=== PATIENT | female | born 1940 | race Caucasian/White ===

== ENCOUNTER 2020-03-21 09:13 | Inpatient (IN) ==
--- NOTE | 2020-02-22 15:01 | PAT Medication Instructions ---
Medication Instructions Date of Service February 22, 2020 Home Medications allopurinol 300 mg PO QAM amoxicillin 2,000 mg PO UD aspirin [Aspir-81] 81 mg PO HS cholecalciferol (vitamin D3) 25 mcg PO QAM clonazepam 1 mg PO HS erythromycin 1 applic OPHTHALMIC (EYE) HS gabapentin 300 mg PO TID ibuprofen [Advil] 600 mg PO BID latanoprost (PF) 1 drp OPHTHALMIC (EYE) HS levothyroxine 88 mcg PO QAM lisinopril 2.5 mg PO HS simvastatin 20 mg PO PM vit C,I-Yt-jinmy-lutein-zeaxan [PreserVision AREDS-2] 1 tab PO BID Continue as directed amoxicillin 2,000 mg PO UD (for dental procedures) ASK your surgeon for instructions ibuprofen [Advil] 600 mg PO BID STOP taking 2 weeks before surgery If surgery is within 2 weeks, stop taking as soon as possible. vit C,Y-Vi-skghq-lutein-zeaxan [PreserVision AREDS-2] 1 tab PO BID DO NOT take the morning of surgery cholecalciferol (vitamin D3) 25 mcg PO QAM Take morning of surgery With a small sip of water, OTHERWISE NOTHING TO EAT OR DRINK AFTER MIDNIGHT: allopurinol 300 mg PO QAM gabapentin 300 mg PO TID levothyroxine 88 mcg PO QAM Take evening before surgery aspirin [Aspir-81] 81 mg PO HS clonazepam 1 mg PO HS erythromycin 1 applic OPHTHALMIC (EYE) HS (bring with you to the hospital) gabapentin 300 mg PO TID latanoprost (PF) 1 drp OPHTHALMIC (EYE) HS (bring with you to the hospital) lisinopril 2.5 mg PO HS Other Notes If you have any questions please call us at [phone] or [phone] or [phone] or [phone]
--- NOTE | 2020-02-23 12:08 | Anesthesiology Consultation ---
Date of Service February 23, 2020 Assessment & Plan (1) Encounter for pre-operative examination: COVID Status: As of 02/22 assessment, patient denies travel to endemic area, known exposure/sick contacts, or symptoms of COVID19. Patient instructed that they and their household members must follow strict social distancing guidelines, wear a mask in public and avoid travel for 14 days prior to surgery. Preoperative COVID19 testing to be completed prior to surgery per surgeon's arrangements. Patient made aware to self-isolate as much as possible between COVID testing and surgery. Chart Review Chart Review: Acceptable Risk for Surgery and Patient seen in Pre Admission Testing Teaching & Discussion Instructed NPO after midnight before surgery, except medications with 15 cc of water. Medication instructions provided according to the PAT guidelines. History Surgery Operation Date: 03/21/20 09:00 Proposed Procedures p Right Total Knee Arthroplasty - Janak Nieto MD Height/Weight Height: 5 ft 4 in Weight: 80.8 kg Allergies Allergy/AdvReac Type Severity Reaction Status Date / Time diclofenac AdvReac Unknown RED SKIN, Verified 02/15/20 10:15 ITCHY indomethacin AdvReac Unknown NAUSEA Verified 02/15/20 10:15 VOMITING meloxicam AdvReac Unknown NAUSEA AND Verified 02/15/20 10:15 VOMITING Medications Home Medications Medication Instructions Recorded Confirmed Last Taken allopurinol 300 mg PO QAM 10/13/19 02/15/20 Unknown amoxicillin 2,000 mg PO UD 10/13/19 02/15/20 Unknown aspirin [Aspir-81] 81 mg PO HS 10/13/19 02/15/20 Unknown cholecalciferol (vitamin D3) 25 mcg PO QAM 10/13/19 02/15/20 Unknown [Vitamin D3] clonazepam 1 mg PO HS 10/13/19 02/15/20 Unknown erythromycin 1 applic OPHTHALMIC (EYE) HS 10/13/19 02/15/20 Unknown gabapentin 300 mg PO TID 10/13/19 02/15/20 Unknown ibuprofen [Advil] 600 mg PO BID 10/13/19 02/15/20 Unknown latanoprost (PF) 1 drp OPHTHALMIC (EYE) HS 10/13/19 02/15/20 Unknown levothyroxine 88 mcg PO QAM 10/13/19 02/15/20 Unknown lisinopril 2.5 mg PO HS 10/13/19 02/15/20 Unknown simvastatin 20 mg PO PM 10/13/19 02/15/20 Unknown vit C,B-Ce-zamoy-lutein-zeaxan 1 tab PO BID 10/13/19 02/15/20 Unknown [PreserVision AREDS-2] Past Medical History Medical History Arthritis Cancer RIGHT BREAST-6 YRS AGO Glaucoma Gout Hyperlipidemia Hypothyroidism MVP (mitral valve prolapse) Patient reports this was dx by her PCP but denies ever having an echo. She does premedicate with ABX prior to dental procedures. No murmur appreciated on exam at PAT. Restless leg syndrome Exercise / Class Metabolic Activity II 4-5 Yardwork/Stairs/Walk up hill (Mild INGRAM with 1 FOS but denies any chest pain) Past Family History Family History Sister Family history of diabetes mellitus Sister Family history of diabetes mellitus Past Surgical History Surgical History History of cataract surgery R/L History of colonoscopy X 4 History of hysterectomy TOTAL Hx of lumpectomy RIGHT BREAST S/P foot surgery R/L INCLUDING BUNIONS Past Anesthesia History No Hx of Anesthesia Complications and No Family Hx of Anesthesia Complications History of PONV No Hx of PONV and No Hx of Motion Sickness Social History Smoking Status: Never smoker Do You Dip or Chew Tobacco: No Hx Alcohol Use: Yes (very rarely) Alcohol type: beer and wine alcohol intake frequency: holidays/special occasions only Hx Substance Use: No substance use type: does not use Review of Systems Pt denies any recent chest pain, shortness of breath, palpitations, cough, fever, URI, or uncontrolled acid reflux. Physical Exam Vital Signs BP: 113/70 P: 63bpm SPO2: 97% RA T: 97.9 F R: 16 ENMT Mouth: + dentures (partial upper); no chipped teeth and no loose teeth Thyromental Distance: > or= 3.5 Finger Breadths (3.5) Mallampati Class: II Neck normal visual inspection and + limited neck extension (mildly) Respiratory normal respiratory effort Auscultation: lungs clear to auscultation bilaterally Cardiovascular Rate/Rhythm: regular rate and regular rhythm Heart Sounds: no murmur Extremities: no edema Testing Laboratory Results 02/23/20 11:59 02/23/20 11:59 PT 10.4 Seconds (9.0-12.0) 02/23/20 11:59 INR 1.0 (0.9-1.1) 02/23/20 11:59 APTT 25.5 Seconds (21.0-31.0) 02/23/20 11:59 Hemoglobin A1c 5.7 % (4.5-5.6) H 02/23/20 11:59 Urine Color Yellow 02/23/20 Unknown Urine Appearance Turbid (Clear) A 02/23/20 Unknown Urine pH 5.0 (4.5-7.5) 02/23/20 Unknown Ur Specific [place] 1.019 (1.000-1.030) 02/23/20 Unknown Urine Protein Negative (Negative) 02/23/20 Unknown Urine Glucose (UA) Negative (Negative) 02/23/20 Unknown Urine Ketones Negative (Negative) 02/23/20 Unknown Urine Nitrite Positive (Negative) A 02/23/20 Unknown Ur Leukocyte Esterase 3+ (Negative) H 02/23/20 Unknown Urine WBC (Auto) >30 /hpf (0-5) H 02/23/20 Unknown Urine RBC (Auto) 5-10 /hpf (0-4) H 02/23/20 Unknown U Hyaline Cast (Auto) 1-5 /lpf (0-5) 02/23/20 Unknown U Epithel Cells (Auto) >30 /lpf (0-5) H 02/23/20 Unknown Urine Bacteria (Auto) 4+ (Negative) H 02/23/20 Unknown Blood Type AB Positive 02/23/20 11:59 Antibody Screen NEGATIVE 02/23/20 11:59 02/23/20 Unknown Urine Culture - Final Urine,Clean Catch Klebsiella pneumoniae *Surgeon's office flagged re: + UA Electrocardiogram Date: 02/23/20 Findings: + NSR @ (64bpm) Chest X-Ray Date: 02/23/20 Findings: + NAD
[2020-02-23 12:51] LABS: Basophils # (auto) 0.06 K/uL (0-0.2); Basophils % (auto) 0.6 %; Eosinophils # (auto) 0.46 K/uL (0-0.5); Eosinophils % (auto) 4.9 %; Hematocrit (blood only) 38.3 % (37-47); Hemoglobin 12.7 g/dL (12.0-16.0); Immature Granulocytes # (auto) 0.03 K/uL (0.00-0.02); Immature Granulocytes % (auto) 0.3 %; Lymphocytes # (auto) 3.16 K/uL (1.2-3.4); Lymphocytes % (auto) 33.9 %; Mean Corpuscular Hgb Conc 33.2 g/dL (32-36); Mean Corpuscular Volume 93.4 fL (80-100); Monocytes # (auto) 0.77 K/uL (0.11-0.59); Monocytes % (auto) 8.3 %; Neutrophils # (auto) 4.85 K/uL (1.4-6.5); Platelet Count 244 K/uL (130-400); RDW Coefficient of Variation 13.2 % (11.5-14.5); RDW Standard Deviation 45.2 fL (36.4-46.3); White Blood Count 9.33 K/uL (4.8-10.8)
--- NOTE | 2020-02-23 13:00 | XRay Report ---
XR chest Pre-admission PA/Lat HISTORY: Preop. COMPARISON: None. FINDINGS: The lungs are clear. Cardiac silhouette is normal in size. No pleural effusions. No pneumot horax. IMPRESSION: No acute process. ACT 112: Negative or not required by law. Electronically signed by: Don Schulte M.D. 02/23/2020 12:58 PM
[2020-02-23 13:04] LABS: Estimated Average Glucose 117 mg/dl; Hemoglobin A1C 5.7 % (4.5-5.6)
[2020-02-23 13:07] LABS: Appearance Urine Turbid (Clear); Bacteria Urine Automated 4+ (Negative); Bilirubin Urine Negative (Negative); Blood Urine Trace (Negative); Color Urine Yellow; Epithelial Cell Urine Auto >30 /lpf (0-5); Glucose Urine UA Negative (Negative); Ketones Urine Negative (Negative); Leukocyte Esterase Urine 3+ (Negative); Nitrite Urine Positive (Negative); Protein Urine Negative (Negative); Specific Gravity Urine 1.019 (1.000-1.030); Urobilinogen Urine Negative (Negative); WBC Urine Automated >30 /hpf (0-5)
[2020-02-23 13:14] LABS: Partial Thromboplastin Ratio 0.9; Partial Thromboplastin Time 25.5 Seconds (21.0-31.0); Prothrombin Time 10.4 Seconds (9.0-12.0)
[2020-02-23 13:27] LABS: Albumin Level 3.8 gm/dl (3.4-5.0); BUN Creatinine Ratio 16.8 (10-20); Calcium 9.5 mg/dl (8.5-10.1); Creatinine Clr Calc Pharmacy 40.4 ml/min; Est GFR (African American) 51.9; Est GFR (Non-African American) 44.7; Potassium 4.8 mmol/L (3.5-5.1)
--- NOTE | 2020-02-23 16:09 | Electrocardiogram Report ---
Test Reason : Blood Pressure : / mmHG Vent. Rate : 064 BPM Atrial Rate : 064 BPM P-R Int : 180 ms QRS Dur : 072 ms QT Int : 380 ms P-R-T Axes : 062 033 025 degrees QTc Int : 392 ms Normal sinus rhythm Normal ECG No previous ECGs available Confirmed by Cabrera Christian ([id number]) on 02/23/2020 4:09:03 PM Referred By: Janak Nieto Confirmed By:Cabrera Christian
--- NOTE | 2020-03-20 13:02 | History & Physical Report ---
Date of Service March 20, 2020 Assessment & Plan (1) Primary osteoarthritis of right knee: Admission and Anticipated Discharge Date Admission Date: Treatment options discussed. She has failed conservative measures above. Risks, benefits and alternatives to surgery including but not limited to infection, DVT, pain, stiffness, need for revision surgery, damage to blood vessels, damage to nerves, PE, , were discussed with the patient and they wish to proceed. Plan will be for right total knee arthroplasty at [facility] on 03/21/20. Will plan on aspirin 81mg bid x 1 mo post op for DVT prophylaxis, as well as will plan on home health PT post discharge. All questions answered. She will follow up post op. Of note, patient's UA and culture positive for UTI. She was treated preoperatively for this. History of Present Illness Chief Complaint: Right knee pain Primary Care Provider: Woodrow Adame MD 79 year old female with PMHx significant for hypothyroidism, HTN, and gout who presents with chronic right knee pain. She has pain affecting her daily acitivities. She has failed conservative measures including cortisone injections, viscoelastic injections, Advil and Aleve. She would like to proceed with right knee replacement. Patient denies headaches, sweats, fevers, chills, double vision, blurred vision, cough, sore throat, dysphagia, chest pain, sob, wheezing, n/v/d/c, numbness, tingling, fatigue, urinary symptoms, mood disorders. ROS positive for right knee pain and stiffness. Allergies Allergy/AdvReac Type Severity Reaction Status Date / Time diclofenac AdvReac Unknown RED SKIN, Verified 02/15/20 10:15 ITCHY indomethacin AdvReac Unknown NAUSEA Verified 02/15/20 10:15 VOMITING meloxicam AdvReac Unknown NAUSEA AND Verified 02/15/20 10:15 VOMITING Home Medications Home Medications Medication Instructions Recorded Confirmed Type allopurinol 300 mg PO QAM 10/13/19 02/15/20 History amoxicillin 2,000 mg PO UD 10/13/19 02/15/20 History aspirin [Aspir-81] 81 mg PO HS 10/13/19 02/15/20 History cholecalciferol (vitamin D3) 25 mcg PO QAM 10/13/19 02/15/20 History [Vitamin D3] clonazepam 1 mg PO HS 10/13/19 02/15/20 History erythromycin 1 applic OPHTHALMIC (EYE) 10/13/19 02/15/20 History gabapentin 300 mg PO TID 10/13/19 02/15/20 History ibuprofen [Advil] 600 mg PO BID 10/13/19 02/15/20 History latanoprost (PF) 1 drp OPHTHALMIC (EYE) HS 10/13/19 02/15/20 History levothyroxine 88 mcg PO QAM 10/13/19 02/15/20 History lisinopril 2.5 mg PO HS 10/13/19 02/15/20 History simvastatin 20 mg PO PM 10/13/19 02/15/20 History vit C,Q-Sg-yvvvu-lutein-zeaxan 1 tab PO BID 10/13/19 02/15/20 History [PreserVision AREDS-2] Past Med/Surg History Medical History Arthritis Cancer RIGHT BREAST-6 YRS AGO Glaucoma Gout Hyperlipidemia Hypothyroidism MVP (mitral valve prolapse) Patient reports this was dx by her PCP but denies ever having an echo. She does premedicate with ABX prior to dental procedures. No murmur appreciated on exam at PAT. Restless leg syndrome Surgical History History of cataract surgery R/L History of colonoscopy X 4 History of hysterectomy TOTAL Hx of lumpectomy RIGHT BREAST S/P foot surgery R/L INCLUDING BUNIONS Family History Sister Family history of diabetes mellitus Sister Family history of diabetes mellitus Social History Smoking Status: Never smoker Second Hand Exposure: Yes (FATHER SMOKED); Do You Dip or Chew Tobacco: No; Hx Alcohol Use: Yes (very rarely) Alcohol type: beer and wine Hx Substance Use: No Preferred Language: Wolof Communication Ability: Effective Family Assistant Required: No Beliefs That Will Affect Care: None Current Living Situation: Spouse Other Information That Helps Us Care for You: No Feels Safe at Home: Yes Safety Concerns: Feels Safe At This Time Review of Systems All systems reviewed & are unremarkable except as noted in HPI & below Physical Exam Constitutional: well developed and well nourished; no acute distress Eyes: PERRL, conjunctivae normal, anicteric sclerae ENMT: external ear and nose normal, oropharynx normal Neck: trachea midline, no thyromegaly Respiratory: normal respiratory effort, lungs clear to auscultation Cardiovascular: RRR, no murmur, no edema Musculoskeletal: Right knee: ROM 0-130, mild effusion. Tenderness medial joint line. Stable to valgus and varus stress, positive Francesco's Skin: no rashes, warm and dry Neurologic: patellar DTR's 2+ bilat, sensation intact Psychiatric: A+Ox3, euthymic affect Results & Data ([facility]) Laboratory Results Lab Results 02/23/20 02/23/20 02/23/20 Range/Units 11:59 11:59 11:59 WBC 9.33 (4.8-10.8) K/uL RBC 4.10 L (4.2-5.4) M/uL Hgb 12.7 (12.0-16.0) g/dL Hct 38.3 (37-47) % MCV 93.4 (80-100) fL MCH 31.0 (25-34) pg MCHC 33.2 (32-36) g/dL RDW Std Deviation 45.2 (36.4-46.3) fL RDW Coeff of Nicci 13.2 (11.5-14.5) % Plt Count 244 (130-400) K/uL MPV 11.0 H (7.4-10.4) fL Immature Gran % (Auto) 0.3 % Neut % (Auto) 52.0 % Lymph % (Auto) 33.9 % [place] % (Auto) 8.3 % Eos % (Auto) 4.9 % Baso % (Auto) 0.6 % Neut # (Auto) 4.85 (1.4-6.5) K/uL Lymph # (Auto) 3.16 (1.2-3.4) K/uL [place]verse # (Auto) 0.77 H (0.11-0.59) K/uL Eos # (Auto) 0.46 (0-0.5) K/uL Baso # (Auto) 0.06 (0-0.2) K/uL Immature Gran # (Auto) 0.03 H (0.00-0.02) K/uL PT 10.4 (9.0-12.0) Seconds INR 1.0 (0.9-1.1) APTT 25.5 (21.0-31.0) Seconds PTT Ratio 0.9 Sodium 143 (136-145) mmol/L Potassium 4.8 (3.5-5.1) mmol/L Chloride 112 H (98-107) mmol/L Carbon Dioxide 26 (21-32) mmol/L Anion Gap 5.0 (3-11) BUN 19 H (7-18) mg/dl Creatinine 1.16 (0.6-1.2) mg/dl Est Cr Clr Drug Dosing 40.4 ml/min Est GFR ( Amer) 51.9 Est GFR (Non-Af Amer) 44.7 BUN/Creatinine Ratio 16.8 (10-20) Glucose 84 (70-99) mg/dl Estimat Average Glucose mg/dl Hemoglobin A1c (4.5-5.6) % Calcium 9.5 (8.5-10.1) mg/dl Albumin 3.8 (3.4-5.0) gm/dl Urine Color Urine Appearance (Clear) Urine pH (4.5-7.5) Ur Specific [place] (1.000-1.030) Urine Protein (Negative) Urine Glucose (UA) (Negative) Urine Ketones (Negative) Urine Blood (Negative) Urine Nitrite (Negative) Urine Bilirubin (Negative) Urine Urobilinogen (Negative) Ur Leukocyte Esterase (Negative) Urine WBC (Auto) (0-5) /hpf Urine RBC (Auto) (0-4) /hpf U Hyaline Cast (Auto) (0-5) /lpf U Epithel Cells (Auto) (0-5) /lpf Urine Bacteria (Auto) (Negative) Blood Type Antibody Screen 02/23/20 02/23/20 02/23/20 Range/Units 11:59 11:59 Unknown WBC (4.8-10.8) K/uL RBC (4.2-5.4) M/uL Hgb (12.0-16.0) g/dL Hct (37-47) % MCV (80-100) fL MCH (25-34) pg MCHC (32-36) g/dL RDW Std Deviation (36.4-46.3) fL RDW Coeff of Nicci (11.5-14.5) % Plt Count (130-400) K/uL MPV (7.4-10.4) fL Immature Gran % (Auto) % Neut % (Auto) % Lymph % (Auto) % [place]verse % (Auto) % Eos % (Auto) % Baso % (Auto) % Neut # (Auto) (1.4-6.5) K/uL Lymph # (Auto) (1.2-3.4) K/uL [place] # (Auto) (0.11-0.59) K/uL Eos # (Auto) (0-0.5) K/uL Baso # (Auto) (0-0.2) K/uL Immature Gran # (Auto) (0.00-0.02) K/uL PT (9.0-12.0) Seconds INR (0.9-1.1) APTT (21.0-31.0) Seconds PTT Ratio Sodium (136-145) mmol/L Potassium (3.5-5.1) mmol/L Chloride (98-107) mmol/L Carbon Dioxide (21-32) mmol/L Anion Gap (3-11) BUN (7-18) mg/dl Creatinine (0.6-1.2) mg/dl Est Cr Clr Drug Dosing ml/min Est GFR ( Amer) Est GFR (Non-Af Amer) BUN/Creatinine Ratio (10-20) Glucose (70-99) mg/dl Estimat Average Glucose 117 mg/dl Hemoglobin A1c 5.7 H (4.5-5.6) % Calcium (8.5-10.1) mg/dl Albumin (3.4-5.0) gm/dl Urine Color Yellow Urine Appearance Turbid A (Clear) Urine pH 5.0 (4.5-7.5) Ur Specific [place] 1.019 (1.000-1.030) Urine Protein Negative (Negative) Urine Glucose (UA) Negative (Negative) Urine Ketones Negative (Negative) Urine Blood Trace H (Negative) Urine Nitrite Positive A (Negative) Urine Bilirubin Negative (Negative) Urine Urobilinogen Negative (Negative) Ur Leukocyte Esterase 3+ H (Negative) Urine WBC (Auto) >30 H (0-5) /hpf Urine RBC (Auto) 5-10 H (0-4) /hpf U Hyaline Cast (Auto) 1-5 (0-5) /lpf U Epithel Cells (Auto) >30 H (0-5) /lpf Urine Bacteria (Auto) 4+ H (Negative) Blood Type AB Positive Antibody Screen NEGATIVE Diagnostic Findings Right knee radiographs: Significant joint space narrowing medial compartment, near bone on bone. Osteophyte formation medial femoral condyle and medial tibial plateau.
[~2020-03-21 09:13] MED LIST: ACETAMINOPHEN 500 MG TAB PO SCH; BUPIVACAINE 0.5 % 5 MG/1 ML PF 10ML VIAL ONE; BUPIVACAINE/EPINEPHRINE 0.25% 1:200,000 30 ML VIAL ONE; CEFAZOLIN 2000MG 2,000 MG/15 ML SYR IV SCH; CeleBREX 200 MG CAP PO SCH; DEXAMETHASONE SOD INJ 4 MG/ML VIAL ONE; FAMOTIDINE 20 MG TAB PO SCH; GABAPENTIN 300 MG CAP PO SCH; LIDOCAINE HCL 2% 2 ML VIAL/AMP(20MG/ML) INFIL ONE; LR 500ML BOLUS, THEN 15ML/HR IV SCH; METOCLOPRAMIDE HCL 10 MG TABLET PO SCH; MIDAZOLAM HCL 1 MG/ML 2ML VIAL ONE; ONDANSETRON INJ 2 MG/ML 2 ML VIAL ONE; OXYCODONE HCL 10 MG TABCR (OXYCONTIN) PO SCH; PROPOFOL IV EMULSION 10 MG/ML 20 ML VIAL IV ONE; ROPIVACAINE 0.5% HCL/PF 150 MG, BUPIVACAINE 0.5% MPF 30 ML, EPINEPHrine 30MG/30ML (OR U... INSTIL SCH; TRANEXAMIC ACID 1,000 MG **IV Intra-op IV SCH; TRANEXAMIC ACID 1,000 MG **IV Pre-op IV SCH; fentaNYL citrate 100 MCG/2 ML VIAL ONE
--- NOTE | 2020-03-21 09:46 | History & Physical Bridge Note ---
Date of Service March 21, 2020 History & Physical Bridge Note I have examined the patient, reviewed the History & Physical and in the interval since the performance of the History & Physical I have noted the following changes of clinical significance: no changes noted
[2020-03-21] MEDS ORDERED: dexAMETHasone 4 MG TAB PO ONE (09:50)
[2020-03-21] MEDS ORDERED: BACITRACIN INJ 50,000 UNIT VIAL ONE (10:51)
[2020-03-21] MEDS ORDERED: MIDAZOLAM HCL 1 MG/ML 2ML VIAL ONE (11:06)
[2020-03-21] MEDS ORDERED: PHENYLEPHRINE 100MCG/ML 5ML SYR ONE (11:48)
[2020-03-21] MEDS ORDERED: fentaNYL citrate 100 MCG/2 ML VIAL IV PRN (12:27)
[2020-03-21] MEDS ORDERED: ePHEDrine sulfate 50 MG/ML AMP IV PRN (12:27)
[2020-03-21] MEDS ORDERED: ATROPINE SULFATE 0.1 MG/ML 10ML SYR IV PRN (12:27)
[2020-03-21] MEDS ORDERED: ONDANSETRON INJ 2 MG/ML 2 ML VIAL IV PRN ×2 (12:27→14:44)
--- NOTE | 2020-03-21 12:59 | Operative Report ---
Post Operative Report Pre & Post Diagnosis Operation Date: 03/21/20 11:30 Pre-Op Diagnosis: Unilateral Primary Osteoarthritis, Right Knee Post-Op Diagnosis: Unilateral Primary Osteoarthritis, Right Knee I identified the patient and participated in the time-out.: Yes Procedure Operation Date: 03/21/20 11:30 Actual Procedures p Right Total Knee Arthroplasty(Right) - Janak Nieto MD Surgeon Janak Nieto MD Superannuation Funds Manager Ham Rubi PA-C Estimated Blood Loss 20 Findings Consistent with Post-Op Diagnosis Specimens Bone and tissue Drains None Anesthesia Type MAC Spinal Regional Complications none Disposition Accompanied Patient To Recovery: No Disposition: Recovery Room Indications The patient is a 79-year-old female with longstanding arthritic change of the right knee. She is failed conservative measures including injection, anti- inflammatories, rehab. She wishes to proceed with a right total knee arthroplasty Description of Procedure Risks benefits and alternatives of surgery including but not limited to infection, DVT, pain, stiffness, need for surgery, damage to blood vessels, damage to nerves or risks of anesthesia were discussed with the patient and they wished to proceed. The patient was identified and the laterality was confirmed and marked. They received a preoperative antibiotic as well as a spinal anesthetic and an abductor canal block. A well-padded tourniquet was applied and then the limb was prepped and draped in standard manner with ChloraPrep. The limb was exsanguinated and the tourniquet was inflated. I made a standard anterior incision. I sharply incised the skin then utilized Bovie electrocautery to achieve hemostasis. I made a medial parapatellar ar throtomy and mobilized the patella laterally. I then excised the anterior horns of the medial and lateral meniscus as well as the infrapatellar fat pad. I elevated a portion of the MCL off of the tibia. I then pinned into place a patient-matched distal femoral cutting guide and made my distal femoral resection. I then pinned into place the 5 in 1 femoral cutting guide. I made my anterior, posterior and chamfer cuts. I then excised the cruciates and the remaining portions of the menisci. I then pinned into place a patient- matched tibial cutting guide and made my tibial resection. I then pinned into place the tibial plate a utilizing alignment isai to confirm rotation. I then cut for the post. Utilizing a lamina public services librarian and I then removed posterior osteophytes off the femur. I then placed a trial femur into position and cut for the trochlear component. I then sequentially trialed to size the polyethylene until there was good soft tissue balancing and range of motion. I then prepared the patella with a freehand cut utilizing sagittal saw. I sized and drilled for the patella. There was good tracking to the patella no lateral release was needed. All the trial components were removed. The deep tissues were anesthetized with an ortho mix solution. Then with Simplex HV with gentamicin cement, I cemented my definitive components. Definitive components, You and Nephew Kathyney 2: Femur 3 Tibia 3 Poly 9 Patella 32 oval A betadine soak was performed. The arthrotomy was closed with interrupted #1 Vicryl suture subcutaneous tissue was closed with interrupted 2-0 Vicryl suture. The skin was closed with with pato. An Acticoat and Courtney dressing were placed. Sterile dressings were applied. All needle and sponge counts were correct at the end of the procedure patient was transferred to the PACU in stable condition without apparent complication. The PA-C was necessary for assistance with procedure for assistance in positioning, prepping, draping, retraction and closure. I attest to the content of the Intraoperative Record and any orders documented therein. Any exceptions are noted below.
[2020-03-21] MEDS ORDERED: PROPOFOL IV EMULSION 10 MG/ML 20 ML VIAL IV ONE (13:07)
--- NOTE | 2020-03-21 14:26 | XRay Report ---
XR knee RT 1 or 2V routine CLINICAL HISTORY: Surgical Post Op COMPARISON: None. DISCUSSION: There are postsurgical changes of a total right knee arthroplasty and patellar resurfacin g. Overlying skin pato are visualized. There is gas present within the soft tissues consistent wit h recent surgery. The femoral and tibial components appear well seated. IMPRESSION: Postsurgical changes of a total right knee arthroplasty. ACT 112: Negative or not required by law. Electronically signed by: Scotty Marquez M.D. 03/21/2020 2:25 PM
--- NOTE | 2020-03-21 14:31 | Anesthesiology Progress Note ---
Date of Service March 21, 2020 Anesthesia Post Procedure Vital Signs Vital Signs: Temp Pulse Pulse Resp BP Pulse Ox 03/21/20 14:15 87 16 113/56 L 100 03/21/20 14:00 36.5 C 91 H 16 109/55 L 100 03/21/20 13:50 93 H 16 116/49 L 99 03/21/20 13:42 36.6 C 98 H 16 118/50 L 97 03/21/20 10:36 36.6 C 81 20 142/69 H 96 03/21/20 09:59 36.8 C 90 18 153/69 H 98 Pain Intensity Right Knee: Pain Intensity: 3 Transfer of Care Handoff Completed per policy Notes Mental Status: alert / awake / arousable Patient Amnestic to Procedure: Yes Nausea / Vomiting: adequately controlled Pain: adequately controlled Airway Patency, RR, SpO2: stable & adequate BP & HR: stable & adequate Hydration State: stable & adequate Neuraxial Anesthesia: was administered and sensory block is resolving Anesthetic Complications: no major complications apparent
[2020-03-21] MEDS ORDERED: NALOXONE HCL 0.4 MG/1 ML VIAL/CARP IV PRN (14:44)
[2020-03-21] MEDS ORDERED: bisacodyL 10 MG SUPP PR PRN (14:44)
[2020-03-21] MEDS ORDERED: HYDROmorphone INJ 0.5 MG/0.5 ML SYR IV PRN (14:44)
[2020-03-21] MEDS ORDERED: OXYCODONE HCL IR 5 MG TAB (IMMEDIATE RELEASE) PO PRN (14:44)
[2020-03-21] MEDS ORDERED: METOCLOPRAMIDE HCL INJ 5 MG/ML 2 ML VIAL IV PRN (14:44)
[2020-03-21] MEDS ORDERED: SODIUM CHLORIDE 0.9% 1000ML 1,000 ML IV SCH (14:44)
[2020-03-21] MEDS ORDERED: MAGNESIUM HYDROXIDE SUSP 30 ML UDC PO PRN (14:44)
[2020-03-21] MEDS ORDERED: NON-FORMULARY MEDICATION (Amoxicillin 2,000 MG) PO SCH (14:44)
[2020-03-21] MEDS: ACETAMINOPHEN 500 MG TAB PO SCH ×2 (17:50→21:51)
[2020-03-21] MEDS: GABAPENTIN 300 MG CAP PO SCH ×2 (17:51→21:49)
[2020-03-21] MEDS: ERYTHROMYCIN OP OINT 5 MG/GM 3.5 GM TUBE OP SCH (18:43)
[2020-03-21] MEDS: SENNA 8.6 MG TAB PO SCH (18:45)
[2020-03-21] MEDS: CEFAZOLIN 2000MG 2,000 MG/15 ML SYR IV SCH ×2 (18:50→23:38)
[2020-03-21] MEDS ORDERED: LATANOPROST 0.005% OP SOLN 2.5 ML BTL OPL SCH (21:00)
[2020-03-21] MEDS: DOCUSATE SODIUM 100 MG CAP PO SCH (21:48)
[2020-03-21] MEDS: CEROVITE ADV FORMULA TAB PO SCH (21:50)
[2020-03-21] MEDS: IBUPROFEN 600 MG TAB PO SCH (21:50)
[2020-03-21] MEDS: SIMVASTATIN 20 MG TAB PO SCH (21:51)
[2020-03-21] MEDS: ASPIRIN 81 MG ECTAB PO SCH (21:51)
[2020-03-21] MEDS: clonazePAM 1 MG TAB PO SCH (21:56)
[2020-03-22] MEDS: ACETAMINOPHEN 500 MG TAB PO SCH ×3 (05:01→21:50)
[2020-03-22] MEDS: LEVOTHYROXINE SODIUM 88 MCG TABLET PO SCH (05:01)
[2020-03-22 06:02] LABS: Hematocrit (blood only) 35.9 % (37-47); Hemoglobin 11.7 g/dL (12.0-16.0); Mean Corpuscular Hemoglobin 29.8 pg (25-34); Mean Corpuscular Hgb Conc 32.6 g/dL (32-36); Mean Corpuscular Volume 91.6 fL (80-100); Platelet Count 230 K/uL (130-400); RDW Coefficient of Variation 13.1 % (11.5-14.5); RDW Standard Deviation 43.4 fL (36.4-46.3); Red Blood Count 3.92 M/uL (4.2-5.4); White Blood Count 21.56 K/uL (4.8-10.8)
[2020-03-22 06:31] LABS: BUN Creatinine Ratio 15.8 (10-20); Calcium 8.6 mg/dl (8.5-10.1); Est GFR (African American) 47.4; Est GFR (Non-African American) 40.9; Potassium 4.3 mmol/L (3.5-5.1)
--- NOTE | 2020-03-22 07:29 | Orthopedic Progress Note ---
Date of Service March 22, 2020 Assessment & Plan (1) Primary osteoarthritis of right knee: POD#1 Right TKA -PT/OT -Pain management -DVT prophylaxis-DEL33ty BID, SCDs, TEDs -AM labs-hemoglobin at 11.7 down from 12.7. Creatinine at 1.25 this morning, mildly elevated from 1.16 preop, encourage PO intake -D/C planning-home with HHPT likely tomrrow Admission and Anticipated Discharge Date Admission Date: March 21, 2020 Subjective Patient is doing well this morning, really not having a lot of pain. She denies chest pain, sob, dizziness, nausea. Review of Systems Review of Systems: All systems reviewed & are unremarkable except as noted in HPI & below Physical Exam Physical Exam: Right knee dressing is c/d/i, toes are mobile with good dorsiflexion. No calf tenderness. Distally n/v status and sensation intact. Constitutional: well developed and well nourished; no acute distress Results & Data ([facility]) Vital Signs (Past 12 Hours) Vital Signs Temp Pulse Resp BP BP Pulse Ox 03/22/20 07:06 36.5 C 62 16 100/62 94 03/22/20 03:48 36.5 C 71 14 107/63 96 03/21/20 23:06 36.7 C 86 14 104/65 92 03/21/20 19:50 37.0 C 90 20 111/66 94
--- NOTE | 2020-03-22 08:20 | Anesthesiology Progress Note ---
Date of Service March 22, 2020 Anesthesia Post Procedure Vital Signs Vital Signs: Temp Pulse Pulse Resp BP BP Pulse Ox 03/22/20 07:06 36.5 C 62 16 100/62 94 03/22/20 03:48 36.5 C 71 14 107/63 96 03/21/20 23:06 36.7 C 86 14 104/65 92 03/21/20 19:50 37.0 C 90 20 111/66 94 03/21/20 17:45 36.4 C L 90 20 111/66 97 03/21/20 16:30 36.4 C L 86 20 118/72 96 03/21/20 15:33 36.4 C L 85 18 128/58 L 100 03/21/20 15:08 36.5 C 90 20 131/72 95 03/21/20 14:15 87 16 113/56 L 100 03/21/20 14:00 36.5 C 91 H 16 109/55 L 100 03/21/20 13:50 93 H 16 116/49 L 99 03/21/20 13:42 36.6 C 98 H 16 118/50 L 97 03/21/20 10:36 36.6 C 81 20 142/69 H 96 03/21/20 09:59 36.8 C 90 18 153/69 H 98 Pain Intensity Right Knee: Pain Intensity: 4 Notes Mental Status: alert / awake / arousable Nausea / Vomiting: adequately controlled Pain: adequately controlled Airway Patency, RR, SpO2: stable & adequate BP & HR: stable & adequate Hydration State: stable & adequate Neuraxial Anesthesia: was administered and sensory block resolved Anesthetic Complications: no major complications apparent and Pt Satisfied with anesthetic care
[2020-03-22] MEDS: IBUPROFEN 600 MG TAB PO SCH ×2 (08:29→21:49)
[2020-03-22] MEDS: DOCUSATE SODIUM 100 MG CAP PO SCH ×2 (08:29→21:50)
[2020-03-22] MEDS: CHOLECALCIFEROL 1,000 UNITS 25 MCG TAB PO SCH (08:30)
[2020-03-22] MEDS: ASPIRIN 81 MG ECTAB PO SCH ×2 (08:30→21:52)
[2020-03-22] MEDS: CEROVITE ADV FORMULA TAB PO SCH ×2 (08:30→21:52)
[2020-03-22] MEDS: GABAPENTIN 300 MG CAP PO SCH ×3 (08:30→21:48)
[2020-03-22] MEDS: allopurinoL 300 MG TAB PO SCH (08:30)
[2020-03-22] MEDS ORDERED: MULTIVITAMIN TAB PO SCH (09:00)
[2020-03-22] MEDS ORDERED: LATANOPROST 0.005% OP SOLN 2.5 ML BTL OPL SCH (21:00)
[2020-03-22] MEDS: SENNA 8.6 MG TAB PO SCH (21:48)
[2020-03-22] MEDS: ERYTHROMYCIN OP OINT 5 MG/GM 3.5 GM TUBE OP SCH (21:51)
[2020-03-22] MEDS: SIMVASTATIN 20 MG TAB PO SCH (21:53)
[2020-03-22] MEDS: clonazePAM 1 MG TAB PO SCH (21:58)
[2020-03-23] MEDS: LEVOTHYROXINE SODIUM 88 MCG TABLET PO SCH (05:49)
[2020-03-23] MEDS: ACETAMINOPHEN 500 MG TAB PO SCH ×2 (05:49→13:14)
[2020-03-23] MEDS: IBUPROFEN 600 MG TAB PO SCH (07:43)
[2020-03-23] MEDS: DOCUSATE SODIUM 100 MG CAP PO SCH (07:44)
[2020-03-23] MEDS: ASPIRIN 81 MG ECTAB PO SCH (07:44)
[2020-03-23] MEDS: CEROVITE ADV FORMULA TAB PO SCH (07:44)
[2020-03-23] MEDS: CHOLECALCIFEROL 1,000 UNITS 25 MCG TAB PO SCH (07:45)
[2020-03-23] MEDS: allopurinoL 300 MG TAB PO SCH (07:45)
[2020-03-23] MEDS: GABAPENTIN 300 MG CAP PO SCH ×2 (07:45→13:14)
--- NOTE | 2020-03-23 08:53 | Orthopedic Progress Note ---
Date of Service March 23, 2020 Assessment & Plan (1) Primary osteoarthritis of right knee: POD#2 Right TKA -Plan for removal of dressing today and continue to maintain lucretia dressing -PT/OT -Pain management -DVT prophylaxis-[id number] BID, SCDs, TEDs -AM labs-hemoglobin at 11.7 down from 12.7. Creatinine at 1.25 this morning, mildly elevated from 1.16 preop, encourage PO intake -D/C planning-home with HHPT Admission and Anticipated Discharge Date Admission Date: March 21, 2020 Subjective Postop day 2 Patient sitting up in her chair at the bedside eating her breakfast. Multiple questions about her dressings and exercises this morning. Denies shortness of breath, chest pain, lightheadedness. States the knee is a little bit sore this morning but has no other complaints. Physical Exam Physical Exam: Dressings are clean, dry, and intact. Calves are soft nontender. Neurovascular is intact. Toes are mobile. Results & Data ([facility]) Vital Signs (Past 12 Hours) Vital Signs Temp Pulse Resp BP Pulse Ox 03/23/20 07:07 36.4 C L 71 18 111/69 97 03/22/20 23:20 37.0 C 65 14 109/62 97
--- NOTE | 2020-03-24 14:31 | Discharge Summary ---
Date of Service March 24, 2020 Admission HPI Per Admitting Provider 79 year old female with PMHx significant for hypothyroidism, HTN, and gout who presents with chronic right knee pain. She has pain affecting her daily acitivities. She has failed conservative measures including cortisone injections, viscoelastic injections, Advil and Aleve. She would like to proceed with right knee replacement. Patient denies headaches, sweats, fevers, chills, double vision, blurred vision, cough, sore throat, dysphagia, chest pain, sob, wheezing, n/v/d/c, numbness, tingling, fatigue, urinary symptoms, mood disorders. ROS positive for right knee pain and stiffness. Admission Exam Per Admitting Provider Constitutional: well developed and well nourished; no acute distress Eyes: PERRL, conjunctivae normal, anicteric sclerae ENMT: external ear and nose normal, oropharynx normal Neck: trachea midline, no thyromegaly Respiratory: normal respiratory effort, lungs clear to auscultation Cardiovascular: RRR, no murmur, no edema Musculoskeletal: Right knee: ROM 0-130, mild effusion. Tenderness medial joint line. Stable to valgus and varus stress, positive Francesco's Skin: no rashes, warm and dry Neurologic: patellar DTR's 2+ bilat, sensation intact Psychiatric: A+Ox3, euthymic affect Principal Diagnosis Right knee osteoarthritis Discharge Exam Constitutional well developed and well nourished; no acute distress Eyes PERRL, conjunctivae normal, anicteric sclerae ENMT external ear and nose normal, oropharynx normal Neck trachea midline, no thyromegaly Respiratory normal respiratory effort, lungs clear to auscultation Cardiovascular RRR, no murmur, no edema Skin no rashes, warm and dry Neurologic patellar DTR's 2+ bilat, sensation intact Psychiatric A+Ox3, euthymic affect Discharge Data Allergies Allergy/AdvReac Type Severity Reaction Status Date / Time indomethacin AdvReac Intermediate NAUSEA Verified 03/21/20 09:43 VOMITING meloxicam AdvReac Intermediate NAUSEA AND Verified 03/21/20 09:43 VOMITING diclofenac AdvReac Mild RED SKIN, Verified 03/21/20 09:43 ITCHY Consultations 03/21/20 14:44 Consult Case Management - Discharge Planning Routine Procedures Performed Operation Date: 03/21/20 11:30 Actual Procedures p Right Total Knee Arthroplasty(Right) - Janak Nieto MD Ordered Studies 03/21/20 05:00 US - OR guided needle placemen Routine Hospital Course (1) Primary osteoarthritis of right knee: Patient presented for same day admission following right total knee arthroplasty on 03/21/20. She tolerated procedure well. The Patient had an uneventful hospital course. Post-operatively, her activity was progressed and well tolerated. They participated in PT with ambulation distance of 325 and 150 feet. ROM of operative knee reached 84 degrees. Labs remained stable- lowest hemoglobin recorded:11.7, creatinine was mildly elevated on POD#1 from baseline. Pain controlled on oral medications. Please refer to daily progress notes and PT notes for complete details. After exam on 03/23/20, patient was felt to be stable for discharge home with home health PT. Patient will f/u in the office in about 2 weeks for further evaluation including x-rays and incision check, sooner if having any issues or concerns. Lab Results 02/23/20 02/23/20 02/23/20 Range/Units 11:59 11:59 11:59 WBC 9.33 (4.8-10.8) K/uL RBC 4.10 L (4.2-5.4) M/uL Hgb 12.7 (12.0-16.0) g/dL Hct 38.3 (37-47) % MCV 93.4 (80-100) fL MCH 31.0 (25-34) pg MCHC 33.2 (32-36) g/dL RDW Std Deviation 45.2 (36.4-46.3) fL RDW Coeff of Nicci 13.2 (11.5-14.5) % Plt Count 244 (130-400) K/uL MPV 11.0 H (7.4-10.4) fL Immature Gran % (Auto) 0.3 % Neut % (Auto) 52.0 % Lymph % (Auto) 33.9 % [place] % (Auto) 8.3 % Eos % (Auto) 4.9 % Baso % (Auto) 0.6 % Neut # (Auto) 4.85 (1.4-6.5) K/uL Lymph # (Auto) 3.16 (1.2-3.4) K/uL [place] # (Auto) 0.77 H (0.11-0.59) K/uL Eos # (Auto) 0.46 (0-0.5) K/uL Baso # (Auto) 0.06 (0-0.2) K/uL Immature Gran # (Auto) 0.03 H (0.00-0.02) K/uL PT 10.4 (9.0-12.0) Seconds INR 1.0 (0.9-1.1) APTT 25.5 (21.0-31.0) Seconds PTT Ratio 0.9 Sodium 143 (136-145) mmol/L Potassium 4.8 (3.5-5.1) mmol/L Chloride 112 H (98-107) mmol/L Carbon Dioxide 26 (21-32) mmol/L Anion Gap 5.0 (3-11) BUN 19 H (7-18) mg/dl Creatinine 1.16 (0.6-1.2) mg/dl Est Cr Clr Drug Dosing 40.4 ml/min Est GFR ( Amer) 51.9 Est GFR (Non-Af Amer) 44.7 BUN/Creatinine Ratio 16.8 (10-20) Glucose 84 (70-99) mg/dl Estimat Average Glucose mg/dl Hemoglobin A1c (4.5-5.6) % Calcium 9.5 (8.5-10.1) mg/dl Albumin 3.8 (3.4-5.0) gm/dl Urine Color Urine Appearance (Clear) Urine pH (4.5-7.5) Ur Specific [place] (1.000-1.030) Urine Protein (Negative) Urine Glucose (UA) (Negative) Urine Ketones (Negative) Urine Blood (Negative) Urine Nitrite (Negative) Urine Bilirubin (Negative) Urine Urobilinogen (Negative) Ur Leukocyte Esterase (Negative) Urine WBC (Auto) (0-5) /hpf Urine RBC (Auto) (0-4) /hpf U Hyaline Cast (Auto) (0-5) /lpf U Epithel Cells (Auto) (0-5) /lpf Urine Bacteria (Auto) (Negative) Blood Type Antibody Screen 02/23/20 02/23/20 02/23/20 Range/Units 11:59 11:59 Unknown WBC (4.8-10.8) K/uL RBC (4.2-5.4) M/uL Hgb (12.0-16.0) g/dL Hct (37-47) % MCV (80-100) fL MCH (25-34) pg MCHC (32-36) g/dL RDW Std Deviation (36.4-46.3) fL RDW Coeff of Nicci (11.5-14.5) % Plt Count (130-400) K/uL MPV (7.4-10.4) fL Immature Gran % (Auto) % Neut % (Auto) % Lymph % (Auto) % [place] % (Auto) % Eos % (Auto) % Baso % (Auto) % Neut # (Auto) (1.4-6.5) K/uL Lymph # (Auto) (1.2-3.4) K/uL [place] # (Auto) (0.11-0.59) K/uL Eos # (Auto) (0-0.5) K/uL Baso # (Auto) (0-0.2) K/uL Immature Gran # (Auto) (0.00-0.02) K/uL PT (9.0-12.0) Seconds INR (0.9-1.1) APTT (21.0-31.0) Seconds PTT Ratio Sodium (136-145) mmol/L Potassium (3.5-5.1) mmol/L Chloride (98-107) mmol/L Carbon Dioxide (21-32) mmol/L Anion Gap (3-11) BUN (7-18) mg/dl Creatinine (0.6-1.2) mg/dl Est Cr Clr Drug Dosing ml/min Est GFR ( Amer) Est GFR (Non-Af Amer) BUN/Creatinine Ratio (10-20) Glucose (70-99) mg/dl Estimat Average Glucose 117 mg/dl Hemoglobin A1c 5.7 H (4.5-5.6) % Calcium (8.5-10.1) mg/dl Albumin (3.4-5.0) gm/dl Urine Color Yellow Urine Appearance Turbid A (Clear) Urine pH 5.0 (4.5-7.5) Ur Specific [place] 1.019 (1.000-1.030) Urine Protein Negative (Negative) Urine Glucose (UA) Negative (Negative) Urine Ketones Negative (Negative) Urine Blood Trace H (Negative) Urine Nitrite Positive A (Negative) Urine Bilirubin Negative (Negative) Urine Urobilinogen Negative (Negative) Ur Leukocyte Esterase 3+ H (Negative) Urine WBC (Auto) >30 H (0-5) /hpf Urine RBC (Auto) 5-10 H (0-4) /hpf U Hyaline Cast (Auto) 1-5 (0-5) /lpf U Epithel Cells (Auto) >30 H (0-5) /lpf Urine Bacteria (Auto) 4+ H (Negative) Blood Type AB Positive Antibody Screen NEGATIVE 03/22/20 03/22/20 Range/Units 05:36 05:36 WBC 21.56 H (4.8-10.8) K/uL RBC 3.92 L (4.2-5.4) M/uL Hgb 11.7 L (12.0-16.0) g/dL Hct 35.9 L (37-47) % MCV 91.6 (80-100) fL MCH 29.8 (25-34) pg MCHC 32.6 (32-36) g/dL RDW Std Deviation 43.4 (36.4-46.3) fL RDW Coeff of Nicci 13.1 (11.5-14.5) % Plt Count 230 (130-400) K/uL MPV 11.0 H (7.4-10.4) fL Immature Gran % (Auto) % Neut % (Auto) % Lymph % (Auto) % [place] % (Auto) % Eos % (Auto) % Baso % (Auto) % Neut # (Auto) (1.4-6.5) K/uL Lymph # (Auto) (1.2-3.4) K/uL [place] # (Auto) (0.11-0.59) K/uL Eos # (Auto) (0-0.5) K/uL Baso # (Auto) (0-0.2) K/uL Immature Gran # (Auto) (0.00-0.02) K/uL PT (9.0-12.0) Seconds INR (0.9-1.1) APTT (21.0-31.0) Seconds PTT Ratio Sodium 138 (136-145) mmol/L Potassium 4.3 (3.5-5.1) mmol/L Chloride 109 H (98-107) mmol/L Carbon Dioxide 22 (21-32) mmol/L Anion Gap 7.0 (3-11) BUN 20 H (7-18) mg/dl Creatinine 1.25 H (0.6-1.2) mg/dl Est Cr Clr Drug Dosing 37.0 ml/min Est GFR ( Amer) 47.4 Est GFR (Non-Af Amer) 40.9 BUN/Creatinine Ratio 15.8 (10-20) Glucose 152 H (70-99) mg/dl Estimat Average Glucose mg/dl Hemoglobin A1c (4.5-5.6) % Calcium 8.6 (8.5-10.1) mg/dl Albumin (3.4-5.0) gm/dl Urine Color Urine Appearance (Clear) Urine pH (4.5-7.5) Ur Specific [place] (1.000-1.030) Urine Protein (Negative) Urine Glucose (UA) (Negative) Urine Ketones (Negative) Urine Blood (Negative) Urine Nitrite (Negative) Urine Bilirubin (Negative) Urine Urobilinogen (Negative) Ur Leukocyte Esterase (Negative) Urine WBC (Auto) (0-5) /hpf Urine RBC (Auto) (0-4) /hpf U Hyaline Cast (Auto) (0-5) /lpf U Epithel Cells (Auto) (0-5) /lpf Urine Bacteria (Auto) (Negative) Blood Type Antibody Screen Total Time Total Time Spent Total Time Spent (In Minutes): 20 Discharge Plan Discharge Items Patient Disposition: Home - Home Health Services Reason For Visit: Unilateral Primary Osteoarthritis, Right Knee Discharge Diagnosis: Right Knee Osteoarthritis Activity: Per Instructions section Weightbearing: Right weightbearing Weightbearing Comment: As tolerated with walker Non-emergency contact: Surgeon Call non-emergency contact if: your pain is not controlled, your temperature is above 101.5, your wound has increased redness and your wound has increased drainage Follow-up/Referrals: Woodrow Adame MD [Primary Care Provider] - Diet: Regular Addtl Attending Provider Instructions: ACTIVITY RECOMMENDATIONS: SELF CARE INSTRUCTIONS AFTER TOTAL KNEE REPLACEMENT A. You may need to continue a physical therapy program after discharge from the hospital. There are several options available to you. Your doctor will assist you in selecting the best one for you. 1. An out-patient facility 2 to 3 times a week for therapy or home therapy. 2. Continue working on all exercises taught to you in the hospital. Your goals should be to increase bending of your knee to 90 degrees and beyond and to fully straighten your knee. B. You may progress at your own pace from walking with a walker or crutches to a cane; then to no assistive devices. C. Make walking a part of your daily routine. Be up as much as comfortable with rest periods throughout the day. Rest with leg elevation is very important. Use the ice wrap frequently for the first 3-4 weeks. D. There are no restrictions on activities. You may ride in a car, shop, participate in cath lab nurse and all social activities. E. Wear the long elastic stockings (HERBERT hose) 20 hours a day for 2 weeks after surgery. They can be removed several times a day for laundering and for a bath. F. You may shower, no tub baths until cleared by your doctor. SPECIAL CARE INSTRUCTIONS: VERY IMPORTANT TO READ AND REVIEW A. There are a few signs you need to watch for after you are home. Call [facility] if you notice any of the followin. Increased severe knee pain. Some pain is expected especially when you exercise. 2. Increased swelling in your leg or knee; pain or swelling of the calf muscle in either lower leg. 3. Any fluid drainage from the incision. 4. Shortness of breath or chest pain. B. Please call [facility] at if you have any concerns or questions about your operation or recovery. The doctor or his nurse will return your call promptly. C. You must take antibiotics before dental work, bladder, bowel or other surgery. Your doctor will provide you with a permanent care to carry describing this precaution. IMPORTANT: * REMEMBER TO TAKE ASPIRIN, 81 MG, TWICE DAILY FOR 4 WEEKS UNLESS OTHERWISE DIRECTED. THIS IS YOUR BLOOD THINNER. * HIGH RISK PATIENTS MAY BE PRESCRIBED A STRONGER BLOOD THINNER. THIS WILL BE PROVIDED AT DISCHARGE. * CALL IF INCREASED PAIN, REDNESS, DRAINAGE OR FEVER GREATER THAT 101. * WEAR HERBERT HOSE 20 HOURS PER DAY FOR 2 WEEKS. This is a large suction dressing covering your incision. This will help pull any excess drainage from the wound and allow your incision to heal properly. You may shower with this if you can keep the unit outside of the shower. If any bleeding or leakage is noted please call your doctor's office. This will remain on your incision for 7 days and then should be removed. This can be done yourself or by the home nursing staff if applicable. The entire unit is disposable once removed. Once removed, keep incision clean and dry. If redness or drainage is noted, please call your surgeon. FOLLOW UP VISIT: If appointment is not already scheduled: Please call [facility] to make a follow-up appointment for 2 weeks after your surgery at . Stand-Alone Forms: My [facility], Opioid Pain Management, Smoking Cessation Medications and DC Order Prescriptions: New aspirin 81 mg Tablet,Delayed Release (Dr/Ec) 81 mg PO BID 30 Days Qty: 60 RF: 0 acetaminophen 500 mg Tablet 1,000 mg PO Q8 14 Days Qty: 84 RF: 0 polyethylene glycol 3350 [Miralax] 17 gram powder in packet 17 g PO DAILY PRN (Reason: constipation) Qty: 5 RF: 0 oxycodone 5 mg Tablet 5 mg PO Q4H MDD 6 PRN (Reason: pain) Qty: 30 RF: 0 Continued clonazepam 1 mg Tablet 1 mg PO HS RF: 0 simvastatin 20 mg Tablet 20 mg PO PM RF: 0 erythromycin 5 mg/gram (0.5 %) Ointment 1 applic OPHTHALMIC (EYE) HS RF: 0 gabapentin 300 mg Capsule 300 mg PO TID RF: 0 allopurinol 300 mg Tablet 300 mg PO QAM RF: 0 lisinopril 2.5 mg Tablet 2.5 mg PO HS RF: 0 levothyroxine 88 mcg Capsule 88 mcg PO QAM RF: 0 latanoprost (PF) 0.005 % Drops 1 drp OPHTHALMIC (EYE) HS RF: 0 amoxicillin 500 mg Tablet 2,000 mg PO UD RF: 0 cholecalciferol (vitamin D3) [Vitamin D3] 25 mcg (1,000 unit) Tablet,Chewable 25 mcg PO QAM RF: 0 PreserVision AREDS-2 [id number] Capsule 1 tab PO BID RF: 0 Discontinued aspirin [Aspir-81] 81 mg Tablet,Delayed Release (Dr/Ec) 81 mg PO HS RF: 0 ibuprofen [Advil] 200 mg Tablet 600 mg PO BID RF: 0 Discharge Orders: Discharge Order (Routine); Ordered 03/23/20 Ordered By: Barrington Schilling/Other Patient Handouts: Preventing Deep Vein Thrombosis Admission Data Admit Date/Time: 03/21/20 13:48 Attending Provider: Janak Nieto Admit Provider: Janak Nieto Primary Care Provider: Woodrow Adame Other Providers: [facility],Home Healthcare Other Interventions: Discharge Summary Assessment (RN) Last Done: 03/23/20 09:26
== END 2020-03-23 14:49 | disposition home health service (06) | DRG 470 ==
LOC: ASU 09:13 → 3E 13:48

== ENCOUNTER 2025-05-04 08:15 | Observation (INO) ==
--- NOTE | 2025-04-17 09:40 | PAT Medication Instructions ---
Medication Instructions Date of Service April 17, 2025 Home Medications amoxicillin 500 mg tablet 2,000 mg PO UD erythromycin 5 mg/gram (0.5 %) eye ointment 1 applic ophthalmic (eye) HS levothyroxine 88 mcg capsule 88 mcg PO QAM lisinopril 2.5 mg tablet 2.5 mg PO QAM simvastatin 20 mg tablet 20 mg PO PM vit C 250 mg-vit E 90 mg-zinc 40 mg-copper 1 [id number] capsule (PreserVision AREDS-2) 1 tab PO BID aspirin 81 mg tablet,delayed release 81 mg PO HS multivitamin 1 tab PO QAM omega-3 fatty acids 2,000 mg PO QAM timolol 0.5 % eye drops 1 drp ophthalmic (eye) QAM escitalopram oxalate 5 mg tablet 5 mg PO QAM magnesium 250 mg tablet 250 mg PO QAM mecobalamin-levomefolate calcium-pyridoxal phos 2 mg-3 mg-35 mg tablet 1 tab PO BID Continue as directed amoxicillin 500 mg tablet 2,000 mg PO UD ASK your prescriber and surgeon aspirin 81 mg tablet,delayed release 81 mg PO HS STOP taking 2 weeks before surgery (or as soon as possible if surgery is within 2 weeks) vit C 250 mg-vit E 90 mg-zinc 40 mg-copper 1 [id number] capsule (PreserVision AREDS-2) 1 tab PO BID omega-3 fatty acids 2,000 mg PO QAM DO NOT take the morning of surgery lisinopril 2.5 mg tablet 2.5 mg PO QAM multivitamin 1 tab PO QAM magnesium 250 mg tablet 250 mg PO QAM mecobalamin-levomefolate calcium-pyridoxal phos 2 mg-3 mg-35 mg tablet 1 tab PO BID Take morning of surgery With a small sip of water, OTHERWISE NOTHING TO EAT OR DRINK AFTER MIDNIGHT: levothyroxine 88 mcg capsule 88 mcg PO QAM timolol 0.5 % eye drops 1 drp ophthalmic (eye) QAM escitalopram oxalate 5 mg tablet 5 mg PO QAM Take evening before surgery erythromycin 5 mg/gram (0.5 %) eye ointment 1 applic ophthalmic (eye) HS simvastatin 20 mg tablet 20 mg PO PM Other Notes If you have any questions please call us at [phone] or [phone] or [phone] or [phone]
--- NOTE | 2025-04-18 13:11 | Anesthesiology Consultation ---
Date of Service April 18, 2025 Assessment & Plan (1) Encounter for pre-operative examination: Plan - awaiting upcoming PCP appointment 04/23/25, Neno Wyatt. Optimization form to be faxed to PCP as patient will need transthoracic echo prior to surgery given noted murmur. Patient made aware at PAT appointment, surgeon's office made aware. - right arm restriction. - Pt needs to know arrival time early to coordinate care for her who has dementia. OR made aware. - Outpatient joint assessment: Patient is currently scheduled for inpatient pathway. If re-evaluated and patient/surgeon requests outpatient pathway, patient is not a candidate for outpatient joint program. Chart Review Chart Review: Pending: Refer to Additional Notes / Consult section and Patient seen in Pre Admission Testing Teaching & Discussion Pre-Anesthesia Teaching/Discussion Notes: Instructed NPO after midnight before surgery, except medications with 15 cc of water. Medication instructions provided according to the PAT guidelines. History Surgery Operation Date: 05/04/25 07:15 Proposed Procedures p Left Total Knee Arthroplasty - Clint Minor MD Height/Weight Height: 5 ft 3 in Weight: 78.2 kg Allergies Allergy/AdvReac Type Severity Reaction Status Date / Time indomethacin AdvReac Intermediate NAUSEA Verified 04/16/25 14:32 VOMITING meloxicam AdvReac Intermediate NAUSEA AND Verified 04/16/25 14:32 VOMITING diclofenac AdvReac Mild RED SKIN, Verified 04/16/25 14:32 ITCHY Medications Home Medications Medication Instructions Recorded Confirmed Last Taken amoxicillin 500 mg tablet 2,000 mg PO UD 10/13/19 04/16/25 Unknown erythromycin 5 mg/gram (0.5 %) eye 1 applic ophthalmic (eye) HS 10/13/19 04/16/25 04/26/22 ointment levothyroxine 88 mcg capsule 88 mcg PO QAM 10/13/19 04/16/25 04/26/22 lisinopril 2.5 mg tablet 2.5 mg PO QAM 10/13/19 04/16/25 04/26/22 simvastatin 20 mg tablet 20 mg PO PM 10/13/19 04/16/25 04/26/22 vit C 250 mg-vit E 90 mg-zinc 40 1 tab PO BID 10/13/19 04/16/25 04/26/22 mg-copper 1 [id number] capsule (PreserVision AREDS-2) aspirin 81 mg tablet,delayed 81 mg PO HS 04/14/22 04/16/25 04/26/22 release multivitamin 1 tab PO QA 04/14/22 04/16/25 04/26/22 omega-3 fatty acids 2,000 mg PO QA 04/14/22 04/16/25 04/26/22 timolol 0.5 % eye drops 1 drp ophthalmic (eye) [facility] 04/14/22 04/16/25 Unknown escitalopram oxalate 5 mg tablet 5 mg PO QA 04/16/25 04/16/25 Unknown magnesium 250 mg tablet 250 mg PO QA 04/16/25 04/16/25 Unknown mecobalamin-levomefolate 1 tab PO BID 04/16/25 04/16/25 Unknown calcium-pyridoxal phos 2 mg-3 mg-35 mg tablet Past Medical History Medical History (Updated 04/18/25 @ 15:31 by Leeann Boateng PA-C) Arthritis Glaucoma History of skin cancer HX: breast cancer right partial mastectomy>no chemo/no radiation-limb restriction Hyperlipidemia Hypertension Hypothyroidism Limb alert care status right arm restriction MVP (mitral valve prolapse) Patient reports this was dx by her PCP but denies ever having an echo. She does premedicate with ABX prior to dental procedures. Neuropathy feet Osteoarthritis Restless leg syndrome Patient denies h/o stroke, seizures, heart attack, heart failure, DM, blood clots/DVTs or blood transfusions. Exercise / Class Metabolic Activity III < 4 Walking/Shop/Light housework (denies chest discomfort or shortness of breath with usual activities, does not ambulate up one flight of stairs due to knee dysfunction) Past Family History Family History Sister Family history of diabetes mellitus Sister Family history of diabetes mellitus Past Surgical History Surgical History H/O partial mastectomy right>arm restriction History of cataract surgery right/left History of colonoscopy History of hysterectomy TOTAL History of tonsillectomy History of tooth extraction History of total knee replacement (2019) right S/P foot surgery right/left bunionectomy Status post Mohs surgery Past Anesthesia History No Hx of Anesthesia Complications and No Family Hx of Anesthesia Complications History of PONV No Hx of PONV and No Hx of Motion Sickness Social History Smoking Status: Never smoker Do You Dip or Chew Tobacco: No Hx Alcohol Use: Yes Alcohol type: wine alcohol intake frequency: holidays/special occasions only Hx Substance Use: No substance use type: does not use Review of Systems Patient denies chest pain, shortness of breath, dyspnea on exertion, snoring, witnessed apneas, reflux, fever, chills, cough, wheezing, or palpitations. Physical Exam Vital Signs Vitals BP 108/70 P 63 TEMP 98.3 SP02 95% on RA RESP 18 Physical Patient resting comfortably in chair in no acute distress, alert and oriented, responding appropriately throughout visit Full cervical extension range of motion without pain TMD 3.5 finger breadths Mallampati Score 2 Dentition: upper partial, denies chipped or loose teeth, caps/crowns, implants or bridges Lungs: normal respiratory effort. Good air movement, clear throughout to auscult ation, no adventitious breath sounds Cardiac: regular rate and rhythm, 2/6 systolic murmur noted, no gallops or rubs Carotid arteries: negative bruit bilat Lab Results Anesthesia Preop Results Results Anesthesia Widget: WBC 9.22 K/ul (4.8-10.8) 04/18/25 Hgb 11.9 g/dl (12.0-16.0) L 04/18/25 Hct 36.3 % (37.0-47.0) L 04/18/25 Plt 257 K/uL (130-400) 04/18/25 Na 137 mmol/L (136-145) 04/18/25 K 4.7 mmol/L (3.5-5.1) 04/18/25 Cl 104 mmol/L (98-107) 04/18/25 CO2 27 mmol/L (21-32) 04/18/25 BUN 17 mg/dl (6-23) 04/18/25 Creat 1.01 mg/dl (0.6-1.2) 04/18/25 Glucose Level 91 mg/dl (70-99(Fasting)) 04/18/25 PT 10.4 Seconds (9.0-12.0) 04/18/25 PTT 26 Seconds (21-31) 04/18/25 INR 1.0 (0.9-1.1) 04/18/25 Urine Color Yellow 04/18/25 Urine Appearance Cloudy (Clear) A 04/18/25 Urine pH 6.0 (4.5-7.5) 04/18/25 Urine Specific [place] 1.010 (1.000-1.030) 04/18/25 Urine Protein Negative (Negative) 04/18/25 Urine Glucose (UA) Negative (Negative) 04/18/25 Urine Ketones Negative (Negative) 04/18/25 Urine Blood Negative (Negative) 04/18/25 Urine Nitrite Negative (Negative) 04/18/25 Urine Bilirubin Negative (Negative) 04/18/25 Urine Urobilinogen Negative (Negative) 04/18/25 Urine Leukocyte Esterase 3+ (Negative) H 04/18/25 Urine WBC (Auto) >50 /hpf (0-5) H 04/18/25 Urine RBC (Auto) 0-2 /hpf (0-2) 04/18/25 Urine Hyaline Casts (Auto) 0-2 /lpf (0-2) 04/18/25 Urine Epithelial Cells (Auto) 11-20 /hpf (0-2) H 04/18/25 Urine Bacteria (Auto) 4+ (None Seen) H 04/18/25 Blood Type AB Positive 04/18/25 Antibody Screen NEGATIVE 04/18/25 Testing Laboratory Results Surgeon's office made aware of abnormal UA. Electrocardiogram Date: 04/18/25 NSR, rate 62 bpm Chest X-Ray Date: 04/18/25 Normal chest x-ray
--- NOTE | 2025-04-28 12:45 | History & Physical Report ---
Date of Service April 28, 2025 Assessment & Plan (1) Osteoarthritis of left knee: Plan: Severe end-stage left knee osteoarthritis. Proceed with left total knee arthroplasty [employer] journey knee replacement. Osteoarthritis type: primary Qualified Code(s): M17.12 - Unilateral primary osteoarthritis, left knee History of Present Illness Chief Complaint: Chronic left knee pain and stiffness Primary Care Provider: Katharine Wisdom DO 84-year-old female with progressive left knee pain and stiffness related to osteoarthritis Patient denies headaches, sweats, fevers, chills, double vision, blurred vision, cough, sore throat, dysphagia, chest pain, sob, wheezing, n/v/d/c, numbness, tingling, fatigue, urinary symptoms, mood disorders. ROS positive for some shortness of breath climbing up stairs or walking up a hill. Allergies Allergy/AdvReac Type Severity Reaction Status Date / Time indomethacin AdvReac Intermediate NAUSEA Verified 04/16/25 14:32 VOMITING meloxicam AdvReac Intermediate NAUSEA AND Verified 04/16/25 14:32 VOMITING diclofenac AdvReac Mild RED SKIN, Verified 04/16/25 14:32 ITCHY Home Medications Medication Instructions Recorded Confirmed Type amoxicillin 500 mg tablet 2,000 mg PO UD 10/13/19 04/16/25 History erythromycin 5 mg/gram (0.5 %) eye 1 applic ophthalmic (eye) HS 10/13/19 04/16/25 History ointment levothyroxine 88 mcg capsule 88 mcg PO QAM 10/13/19 04/16/25 History lisinopril 2.5 mg tablet 2.5 mg PO M 10/13/19 04/16/25 History simvastatin 20 mg tablet 20 mg PO PM 10/13/19 04/16/25 History vit C 250 mg-vit E 90 mg-zinc 40 1 tab PO BID 10/13/19 04/16/25 History mg-copper 1 uv-fzuljw-rodber capsule (PreserVision AREDS-2) aspirin 81 mg tablet,delayed 81 mg PO HS 04/14/22 04/16/25 History release multivitamin 1 tab PO QAM 04/14/22 04/16/25 History omega-3 fatty acids 2,000 mg PO QAM 04/14/22 04/16/25 History timolol 0.5 % eye drops 1 drp ophthalmic (eye) QA 04/14/22 04/16/25 History escitalopram oxalate 5 mg tablet 5 mg PO QAM 04/16/25 04/16/25 History magnesium 250 mg tablet 250 mg PO QAM 04/16/25 04/16/25 History mecobalamin-levomefolate 1 tab PO BID 04/16/25 04/16/25 History calcium-pyridoxal phos 2 mg-3 mg-35 mg tablet Past Med/Surg History Problem List (Updated 04/28/25 @ 12:44 by Clint Minor MD) Osteoarthritis of left knee Primary osteoarthritis of right knee Encounter for pre-operative examination Medical History Limb alert care status right arm restriction Osteoarthritis History of skin cancer HX: breast cancer right partial mastectomy>no chemo/no radiation-limb restriction Hypertension Neuropathy feet Arthritis Hypothyroidism MVP (mitral valve prolapse) Patient reports this was dx by her PCP but denies ever having an echo. She does premedicate with ABX prior to dental procedures. Glaucoma Restless leg syndrome Hyperlipidemia Surgical History Status post Mohs surgery H/O partial mastectomy right>arm restriction History of tooth extraction History of tonsillectomy History of total knee replacement (2019) right History of cataract surgery right/left S/P foot surgery right/left bunionectomy History of colonoscopy History of hysterectomy TOTAL Family History Sister Family history of diabetes mellitus Sister Family history of diabetes mellitus Social History Smoking Status: Never smoker Second Hand Exposure: No; Do You Dip or Chew Tobacco: No; Hx Alcohol Use: Yes Alcohol type: wine Hx Substance Use: No Preferred Language: Taiwanese Communication Ability: Effective Customs Compliance Director Required: No Beliefs That Will Affect Care: None marital status: Current Living Situation: Spouse Current Living Situation Comment: [facility] apartment with * has dementia current occupational status: retired Feels Safe at Home: Yes Assistive Devices: Cane and Walker Review of Systems All systems reviewed & are unremarkable except as noted in HPI & below Physical Exam Constitutional: WD/WN, vitals as above Respiratory: normal respiratory effort; no respiratory distress Cardiovascular: Rate/Rhythm: regular rate and regular rhythm Musculoskeletal: Left knee with mild effusion poor flexibility 10 through 90 degrees range of motion with weightbearing pain and crepitation with range of motion. Right knee 0 through 120 degrees range of motion mild swelling surgical scar with knee replacement. Distal circulation sensorimotor exam intact. Skin: no rashes, warm and dry Neurologic: normal touch/pain/proprioception Psychiatric: A+Ox3, euthymic affect Results & Data Diagnostic Findings Left knee end-stage advanced osteoarthritis [id number] medial compartment with subluxation femur medial on tibia and subchondral cystic changes and sclerotic changes both sides of the joint with moderately advanced patellofemoral arthritis. [facility].
[~2025-05-04 08:15] MED LIST changes: -ACETAMINOPHEN 500 MG TAB PO SCH; +BUPIVACAINE 0.25% PF 30 ML VIAL ONE; -BUPIVACAINE/EPINEPHRINE 0.25% 1:200,000 30 ML VIAL ONE; -CEFAZOLIN 2000MG 2,000 MG/15 ML SYR IV SCH; -CeleBREX 200 MG CAP PO SCH; -DEXAMETHASONE SOD INJ 4 MG/ML VIAL ONE; -FAMOTIDINE 20 MG TAB PO SCH; -GABAPENTIN 300 MG CAP PO SCH; +LIDOCAINE 2% 2 ML VIAL/AMP(20MG/ML) INFIL ONE; -LIDOCAINE HCL 2% 2 ML VIAL/AMP(20MG/ML) INFIL ONE; -LR 500ML BOLUS, THEN 15ML/HR IV SCH; -METOCLOPRAMIDE HCL 10 MG TABLET PO SCH; -ONDANSETRON INJ 2 MG/ML 2 ML VIAL ONE; -OXYCODONE HCL 10 MG TABCR (OXYCONTIN) PO SCH; -ROPIVACAINE 0.5% HCL/PF 150 MG, BUPIVACAINE 0.5% MPF 30 ML, EPINEPHrine 30MG/30ML (OR U... INSTIL SCH; -TRANEXAMIC ACID 1,000 MG **IV Intra-op IV SCH; -TRANEXAMIC ACID 1,000 MG **IV Pre-op IV SCH; -fentaNYL citrate 100 MCG/2 ML VIAL ONE
[2025-05-04] MEDS: CeleBREX 200 MG CAP PO SCH (08:57)
[2025-05-04] MEDS: FAMOTIDINE 20 MG TAB PO SCH (08:57)
[2025-05-04] MEDS: ACETAMINOPHEN 500 MG TAB PO SCH ×2 (08:57→15:43)
[2025-05-04] MEDS: METOCLOPRAMIDE HCL 10 MG TABLET PO SCH (08:58)
[2025-05-04] MEDS: GABAPENTIN 300 MG CAP PO SCH (08:58)
[2025-05-04] MEDS: LR 60ML/HR IV SCH (08:58)
[2025-05-04] MEDS: LR 500ML BOLUS, THEN 15ML/HR IV SCH (09:21)
[2025-05-04] MEDS: dexAMETHasone**PF** 10 MG/ML VIAL IV SCH (09:21)
--- NOTE | 2025-05-04 09:49 | History & Physical Bridge Note ---
Date of Service May 04, 2025 History & Physical Bridge Note I have examined the patient, reviewed the History & Physical and in the interval since the performance of the History & Physical I have noted the following changes of clinical significance: no changes noted
[2025-05-04] MEDS: TRANEXAMIC ACID 1,000 MG **IV Pre-op IV SCH (09:54)
[2025-05-04] MEDS ORDERED: PHENYLEPHRINE HCL 10 MG/ML VIAL ONE (10:27)
[2025-05-04] MEDS: ROPIVACAINE 0.5% HCL/PF 246 MG, Ketorolac (*for OR use only*) 30 MG in SODIUM CHLORIDE ... INFIL SCH (11:30)
--- NOTE | 2025-05-04 12:22 | Operative Report ---
Post Operative Report Pre & Post Diagnosis Operation Date: 05/04/25 09:55 Pre-Op Diagnosis: Osteoarthritis Left Knee Post-Op Diagnosis: Osteoarthritis Left Knee I identified the patient and participated in the time-out.: Yes Procedure Operation Date: 05/04/25 09:55 Actual Procedures p Left Total Knee Arthroplasty(Left), partial electrocautery synovectomy, application lucretia and Acticoat superficial wound VAC- Clint Minor MD Surgeon Clint Minor MD Carpentry Foreman Bam MCCORMICK Estimated Blood Loss 5 Findings Consistent with Post-Op Diagnosis Specimens Bone cuts Drains 2 Hemovac Anesthesia Type MAC Spinal Regional Complications none Disposition Disposition: Recovery Room Indications 84 female with chronic progressive osteoarthritis of left knee failed conservative management. Successful right knee replacement in the past and patient wants proceed with left knee replacement at this time. Left knee demonstrates that she is mildly Estrada patellofemoral arthritis severe medial compartment osteoarthritis with varus knee bone loss in the medial compartment. Description of Procedure The patient was taken to the operating room and anesthetized under spinal MAC regional block. Patient was placed supine on the the operating table. A pneumatic tourniquet was placed about the left upper thigh. The knee exam demonstrated 15 through 110 degrees range of motion and a stiff knee. Moderate knee effusion no instability. The involved leg was elevated exsanguinated with Esmarch bandage and the pneumatic tourniquet was raised to 300 millimeters mercury. A longitudinal incision was made across the anterior knee. Skin flaps were elevated. An incision was made into the medial retinaculum and extended up into the mid third of the quadriceps tendon and extended down to the tibial tubercle. Intra-articular findings demonstrated white smooth scarred synovial tissue in the gutters and suprapatellar pouch. Moderate knee effusion that was evacuated. Medial compartment osteoarthritis grade 4 eburnated bone with a chronic radial root tear posterior horn medial meniscus. Cruciate ligaments were still intact. Moderately Estrada patellofemoral osteoarthritis the knee was exposed by excising cruciate ligaments and menisci. The infrapatellar fat pad was resected. The fat pad over the anterior femur at the upper aspect of the articular surface was resected for placement of the component in that area. A subperiosteal peel lateral release was performed around the patella. The You [employer] Nephew journey 2.0 total knee arthroplasty system was utilized for the procedure. The custom femoral cutting guide was pinned in position. The distal femoral cut was made. The size 3, 5 in 1 cutting block was placed. The anterior posterior and chamfer cuts were made. The knee was extended and a free hand cut technique was performed to the patella. The patella width was measured and the width was reproduced using a 32 asymmetrical patella component. 3 drill holes are made for the patella component pegs. The tibia was then subluxed. The custom tibial cutting block was placed and alignment verified with an alignment drop isai then pinned in position and the proximal tibial cut was made with the oscillating saw. Flexion and extension gaps were balanced. Medial and posterior medial releases were required. The size 3 tibial trial was externally rotated in line with the tibial tubercle and pinned in position. The punch for the stem was used. The femoral trial was inserted and centered the notch cutting devices were used and the collet was placed. Tibial trials were used for the insert. The size 12 trial gave balanced ligaments through full range of motion. Patella tracking was assessed with range of motion. The patella tracked centrally. The trials were removed. The Orthomix anesthetic cocktail was injected per protocol. The cut bone surfaces and soft tissue were copiously irrigated with pulsatile lavage saline solution. The final components were cemented with Refobacin cement. The final components were You [employer] Nephew journey 2.0 size 3 left posterior stabilized femoral component with a 3 left tibial component with a 12 mm left posterior stabilized tibial polyethylene component and a 32 mm asymmetric oval patella polyethylene. Xperience irrigation was placed over metal tray prior to polyethyle insertion. After the cement cured, the knee was then copiously irrigated with pulsatile lavage Xperience solution. 2 drains were brought out laterally connected to Hemovac. The quadriceps tendon and medial retinaculum were closed with interrupted Mgawty-ap-jmzuw sutures using #2 FiberWire in the area of the medial retinaculum and distal quadriceps tendon. Additional sutures were placed at the apex of the quadriceps tendon split proximally and at the level of the tibial polyethylene. A 0 strata fix running locking suture was placed from the superior quadriceps split down to the medial retinaculum inferior pole of the patella level. Below that level interrupted number#1 Vicryl sutures were used to repair the medial retinaculum. The knee was taken through full range of motion and repair was secure. Knee range of motion was 0 through 125 degrees. the subcutaneous tissues were closed with 2-0 Vicryl sutures. The skin was closed with surgical pato. A lucretia and Acticoat superficial wound VAC was applied. The tourniquet was let down and the patient had good capillary refill to the extremity. The patient tolerated the procedure well. My physician sales service assistant JACE Venegas participated as regulatory assistant and was integral part in all aspects of the procedure including prepping, draping, leg positioning, soft tissue retraction, instrument management and assisted in the closure , superficial wound VAC application and will participate in postoperative care the patient. Im ordering collagen sheets as a primary dressing and bordered super absorbent for secondary dressings for the wound resulting from this surgery. Collagen is being utilized to encourage the growth of blood vessels and granulation tissue. The collagen will also speed up the wound healing process, increase skin tensile strength at the surgery site and lessen the chance of a wound dehiscence, help prevent infection, and reduce the appearance of scarring. The silicone secondary dressings will protect the wound and help keep it clean and minimize that chances for infection. I believe that this treatment protocol is medically necessary to help facilitate the best outcome possible for my patient. I attest to the content of the Intraoperative Record and any orders documented therein. Any exceptions are noted below.
--- NOTE | 2025-05-04 12:43 | XRay Report ---
XR knee LT 1 or 2V routine CLINICAL HISTORY: Surgical Post Op COMPARISON: None FINDINGS: Left knee prosthesis shows no hardware complication. Postoperative drain is present. There is expected soft tissue gas. Skin pato are present. IMPRESSION: Unremarkable postoperative exam. ACT 112: Negative or not required by law. Electronically signed by: Anjum Fernandez M.D. 05/04/2025 12:42 PM
[2025-05-04] MEDS ORDERED: diphenhydrAMINE Capsule 25 MG CAP PO PRN (14:11)
[2025-05-04] MEDS ORDERED: ONDANSETRON INJ 2 MG/ML 2 ML VIAL IV PRN (14:11)
[2025-05-04] MEDS ORDERED: ALUMINUM/MAGNESIUM SUSP 30 ML UDC PO PRN (14:11)
[2025-05-04] MEDS ORDERED: MAGNESIUM HYDROXIDE SUSP 30 ML UDC PO PRN (14:11)
[2025-05-04] MEDS ORDERED: METOCLOPRAMIDE HCL INJ 5 MG/ML 2 ML VIAL IV PRN (14:11)
[2025-05-04] MEDS ORDERED: NALOXONE HCL 0.4 MG/1 ML VIAL/CARP IV PRN (14:11)
[2025-05-04] MEDS ORDERED: HYDROmorphone INJ 0.5 MG/0.5 ML SYR IV PRN (14:11)
[2025-05-04] MEDS: SODIUM CHLORIDE 0.9% 1,000 ML IV SCH (14:28)
--- NOTE | 2025-05-04 15:33 | Anesthesiology Progress Note ---
Date of Service May 04, 2025 Anesthesia Post Procedure Vital Signs Vital Signs: Temp Pulse Pulse Resp BP Pulse Ox O2 Del Method 05/04/25 15:13 36.4 C L 67 18 119/55 L 97 Room Air 05/04/25 14:40 36.4 C L 54 L 18 121/53 L 99 Room Air 05/04/25 14:10 36.0 C L 52 L 18 122/57 L 97 Room Air 05/04/25 14:00 51 L 18 127/63 96 Room Air 05/04/25 13:50 51 L 20 120/62 96 Room Air 05/04/25 13:40 52 L 16 127/55 L 96 Room Air 05/04/25 13:30 51 L 20 120/62 98 Room Air 05/04/25 13:20 53 L 16 114/58 L 94 Room Air 05/04/25 13:10 53 L 12 120/53 L 95 Room Air 05/04/25 13:00 54 L 12 113/63 95 Room Air 05/04/25 12:50 36.3 C L 54 L 12 121/59 L 94 Room Air 05/04/25 12:40 54 L 15 126/57 L 98 Room Air 05/04/25 12:30 64 14 126/62 98 Oxymask 05/04/25 12:20 63 12 115/60 97 Oxymask 05/04/25 12:15 36.4 C L 70 12 116/57 L 96 Oxymask 05/04/25 08:47 36.8 C 61 20 132/72 97 Room Air O2 Flow Rate 05/04/25 15:13 05/04/25 14:40 05/04/25 14:10 05/04/25 14:00 05/04/25 13:50 05/04/25 13:40 05/04/25 13:30 05/04/25 13:20 05/04/25 13:10 05/04/25 13:00 05/04/25 12:50 05/04/25 12:40 05/04/25 12:30 2 05/04/25 12:20 5 05/04/25 12:15 5 05/04/25 08:47 Pain Intensity Left Knee: Pain Intensity: 8 Transfer of Care Handoff Completed per policy Notes Mental Status: alert / awake / arousable Patient Amnestic to Procedure: Yes Nausea / Vomiting: adequately controlled Pain: adequately controlled Airway Patency, RR, SpO2: stable & adequate BP & HR: stable & adequate Hydration State: stable & adequate Neuraxial Anesthesia: was administered and sensory block is resolving Anesthetic Complications: no major complications apparent and Pt Satisfied with anesthetic care
[2025-05-04] MEDS: ORTHO JOINT ANESTHETIC ONE (15:42)
[2025-05-04] MEDS: TRANEXAMIC ACID / 0.7% NACL 1,000 MG/100 ML BAG IV SCH (18:16)
--- NOTE | 2025-05-04 19:03 | Hospitalist Consultation ---
Date of Consultation May 04, 2025 Assessment & Plan (1) Hypertension: Patient consulted for medical management. will hold lisinopril for the short term (2) Hypothyroidism: will resume home dose of levothyroxine (3) Restless leg syndrome: appears controlled. (4) Hyperlipidemia: resume statin (5) Osteoarthritis of left knee: per primary service. DVT prophylaxis per primary service History of Present Illness Reason for Consultation: Medical management Attending Physician: Clint Minor MD History of Present Illness Patient is an 84 yo female with past medical history noted below is admitted under ortho for OA of left knee. Patient had a left total knee arthroplasty. Patient currently reports no new symptoms. Allergies Allergy/AdvReac Type Severity Reaction Status Date / Time indomethacin AdvReac Intermediate NAUSEA Verified 05/04/25 08:56 VOMITING meloxicam AdvReac Intermediate NAUSEA AND Verified 05/04/25 08:56 VOMITING diclofenac AdvReac Mild RED SKIN, Verified 05/04/25 08:56 ITCHY Home Medications Medication Instructions Recorded Confirmed Type amoxicillin 500 mg tablet 2,000 mg PO UD 10/13/19 05/04/25 History erythromycin 5 mg/gram (0.5 %) eye 1 applic ophthalmic (eye) HS 10/13/19 05/04/25 History ointment levothyroxine 88 mcg capsule 88 mcg PO [facility] 10/13/19 05/04/25 History lisinopril 2.5 mg tablet 2.5 mg PO M 10/13/19 05/04/25 History simvastatin 20 mg tablet 20 mg PO PM 10/13/19 05/04/25 History vit C 250 mg-vit E 90 mg-zinc 40 1 tab PO BID 10/13/19 05/04/25 History mg-copper 1 os-iuuirz-imtluj capsule (PreserVision AREDS-2) aspirin 81 mg tablet,delayed 81 mg PO HS 04/14/22 05/04/25 History release multivitamin 1 tab PO [facility] 04/14/22 05/04/25 History omega-3 fatty acids 2,000 mg PO M 04/14/22 05/04/25 History timolol 0.5 % eye drops 1 drp ophthalmic (eye) [facility] 04/14/22 05/04/25 History escitalopram oxalate 5 mg tablet 5 mg PO QA 04/16/25 05/04/25 History magnesium 250 mg tablet 250 mg PO QAM 04/16/25 05/04/25 History mecobalamin-levomefolate 1 tab PO BID 04/16/25 05/04/25 History calcium-pyridoxal phos 2 mg-3 mg-35 mg tablet acetaminophen 500 mg tablet 1,000 mg (2 x 500 mg) PO Q8H #90 05/04/25 Rx (Tylenol Extra Strength) tabs aspirin 81 mg tablet,delayed 81 mg PO BID #60 tabs 05/04/25 Rx release cefadroxil 500 mg capsule 500 mg PO Q12H #28 caps 05/04/25 Rx celecoxib 200 mg capsule (Celebrex) 200 mg PO Q12H #60 caps 05/04/25 Rx oxycodone 5 mg tablet 5 mg PO Q4H PRN pain #30 tabs 05/04/25 Rx Patient History Medical History Limb alert care status right arm restriction Osteoarthritis History of skin cancer HX: breast cancer right partial mastectomy>no chemo/no radiation-limb restriction Hypertension Neuropathy feet Arthritis Hypothyroidism MVP (mitral valve prolapse) Patient reports this was dx by her PCP but denies ever having an echo. She does premedicate with ABX prior to dental procedures. Glaucoma Restless leg syndrome Hyperlipidemia Surgical History Status post Mohs surgery H/O partial mastectomy right>arm restriction History of tooth extraction History of tonsillectomy History of total knee replacement (2019) right History of cataract surgery right/left S/P foot surgery right/left bunionectomy History of colonoscopy History of hysterectomy TOTAL Family History Sister Family history of diabetes mellitus Sister Family history of diabetes mellitus Social History Smoking Status: Never smoker Second Hand Exposure: No; Do You Dip or Chew Tobacco: No; Hx Alcohol Use: Yes Alcohol type: wine Hx Substance Use: No Preferred Language: Argentine Communication Ability: Effective Travel Trailer Components Assembler Required: No Beliefs That Will Affect Care: None marital status: Current Living Situation: Spouse Current Living Situation Comment: [facility] apartment with * has dementia current occupational status: retired Feels Safe at Home: Yes Safety Concerns: Feels Safe At This Time Assistive Devices: Cane and Walker Assistive Devices Comment: upper partial plates Review of Systems Constitutional: no fever and no body aches Eyes: no blind spots Ear, Nose, Mouth, Throat: no ear pain and no tinnitus Respiratory: no cough Cardiovascular: no chest pain Gastrointestinal: no abdominal pain Genitourinary: no dysuria Musculoskeletal: + joint pain Integumentary: no lesions Neurologic: no localized weakness Psychiatric: no behavioral changes Endocrine: no fatigue Hematologic / Lymphatic: no easy bleeding Allergy / Immunological: no GI upset with certain foods Physical Exam Constitutional: WD/WN, vitals as above Eyes: PERRL, conjunctivae normal, anicteric sclerae ENMT: external ear and nose normal, oropharynx normal Neck: trachea midline, no thyromegaly Respiratory: normal respiratory effort, lungs clear to auscultation Cardiovascular: RRR, no murmur, no edema Gastrointestinal (Abdomen): normal bowel sounds, soft, nontender, no hepatosplenomegaly Musculoskeletal: no cyanosis or clubbing, extremities motor strength 5/5 Skin: no rashes, warm and dry Neurologic: PERRL, EOMI, accommodation nl, no face palsy, no dysarthria Psychiatric: A+Ox3, euthymic affect Lymphatic: no cervical or axillary lymphadenopathy Results & Data Results & Data Vital Signs (Past 12 Hours) Vital Signs Temp Pulse Pulse Resp BP Pulse Ox O2 Del Method 05/04/25 16:57 36.5 C 63 16 115/56 L 95 Room Air 05/04/25 16:02 36.3 C L 84 16 110/69 96 Room Air 05/04/25 15:13 36.4 C L 67 18 119/55 L 97 Room Air 05/04/25 14:40 36.4 C L 54 L 18 121/53 L 99 Room Air 05/04/25 14:10 36.0 C L 52 L 18 122/57 L 97 Room Air 05/04/25 14:00 51 L 18 127/63 96 Room Air 05/04/25 13:50 51 L 20 120/62 96 Room Air 05/04/25 13:40 52 L 16 127/55 L 96 Room Air 05/04/25 13:30 51 L 20 120/62 98 Room Air 05/04/25 13:20 53 L 16 114/58 L 94 Room Air 05/04/25 13:10 53 L 12 120/53 L 95 Room Air 05/04/25 13:00 54 L 12 113/63 95 Room Air 05/04/25 12:50 36.3 C L 54 L 12 121/59 L 94 Room Air 05/04/25 12:40 54 L 15 126/57 L 98 Room Air 05/04/25 12:30 64 14 126/62 98 Oxymask 05/04/25 12:20 63 12 115/60 97 Oxymask 05/04/25 12:15 36.4 C L 70 12 116/57 L 96 Oxymask 05/04/25 08:47 36.8 C 61 20 132/72 97 Room Air O2 Flow Rate 05/04/25 16:57 05/04/25 16:02 05/04/25 15:13 05/04/25 14:40 05/04/25 14:10 05/04/25 14:00 05/04/25 13:50 05/04/25 13:40 05/04/25 13:30 05/04/25 13:20 05/04/25 13:10 05/04/25 13:00 05/04/25 12:50 05/04/25 12:40 05/04/25 12:30 2 05/04/25 12:20 5 05/04/25 12:15 5 05/04/25 08:47 PG Care Time/CCT Total # of Minutes Spent Total Time Spent with Patient: Total time spent is greater than 50% in coordination of care (as documented) at patient's floor/unit and/or counseling patient: Coding Level of Care Code 94367 IN/OBS CONSULT LVL 3,45M Diagnoses Hypertension I10 Hypothyroidism E03.9 Restless leg syndrome G25.81 Hyperlipidemia E78.5 Primary osteoarthritis of left knee M17.12 Osteoarthritis type: primary (5) Osteoarthritis of left knee Osteoarthritis type: primary Qualified Code(s): M17.12 - Unilateral primary osteoarthritis, left knee
[2025-05-04] MEDS ORDERED: [UNRECOGNIZED DRUG - MIXTURE] PO SCH (21:00)
[2025-05-04] MEDS: DOCUSATE SODIUM 100 MG CAP PO SCH (21:37)
[2025-05-04] MEDS: SENNA 8.6 MG TAB PO SCH (21:38)
[2025-05-04] MEDS: SIMVASTATIN 20 MG TAB PO SCH (21:38)
[2025-05-04] MEDS: ERYTHROMYCIN OP OINT 5 MG/GM 3.5 GM TUBE OP SCH (21:45)
[2025-05-05 04:14] VITALS: TEMP 98.4
[2025-05-05] MEDS: LEVOTHYROXINE SODIUM 88 MCG TABLET PO SCH (06:01)
--- NOTE | 2025-05-05 06:32 | Orthopedic Progress Note ---
Date of Service May 05, 2025 Assessment & Plan (1) History of total left knee replacement: Plan: POD #1 s/p left TKA pt/ot dvt proph with EHRBERT/SCD/ASA plan for d/c to [facility] later today d/c hemovac prior to discharge Admission and Anticipated Discharge Date Admission Date: May 04, 2025 Subjective POD #1 s/p left TKA Review of Systems Constitutional: no fever and no chills Respiratory: no cough and no dyspnea Cardiovascular: no chest pain, no dyspnea and no orthopnea Gastrointestinal: no abdominal pain, no nausea and no vomiting Physical Exam Physical Exam: Vital Signs Temp Pulse Pulse Resp BP Pulse Ox O2 Del Method 05/05/25 04:13 36.9 C 74 16 109/61 91 Room Air 05/04/25 23:00 36.8 C 74 16 99/61 L 92 Room Air 05/04/25 19:10 36.5 C 59 L 16 100/52 L 95 Room Air 05/04/25 16:57 36.5 C 63 16 115/56 L 95 Room Air 05/04/25 16:02 36.3 C L 84 16 110/69 96 Room Air 05/04/25 15:13 36.4 C L 67 18 119/55 L 97 Room Air 05/04/25 14:40 36.4 C L 54 L 18 121/53 L 99 Room Air 05/04/25 14:10 36.0 C L 52 L 18 122/57 L 97 Room Air 05/04/25 14:00 51 L 18 127/63 96 Room Air 05/04/25 13:50 51 L 20 120/62 96 Room Air 05/04/25 13:40 52 L 16 127/55 L 96 Room Air 05/04/25 13:30 51 L 20 120/62 98 Room Air 05/04/25 13:20 53 L 16 114/58 L 94 Room Air 05/04/25 13:10 53 L 12 120/53 L 95 Room Air 05/04/25 13:00 54 L 12 113/63 95 Room Air 05/04/25 12:50 36.3 C L 54 L 12 121/59 L 94 Room Air 05/04/25 12:40 54 L 15 126/57 L 98 Room Air 05/04/25 12:30 64 14 126/62 98 Oxymask 05/04/25 12:20 63 12 115/60 97 Oxymask 05/04/25 12:15 36.4 C L 70 12 116/57 L 96 Oxymask 05/04/25 08:47 36.8 C 61 20 132/72 97 Room Air O2 Flow Rate 05/05/25 04:13 05/04/25 23:00 05/04/25 19:10 05/04/25 16:57 05/04/25 16:02 05/04/25 15:13 05/04/25 14:40 05/04/25 14:10 05/04/25 14:00 05/04/25 13:50 05/04/25 13:40 05/04/25 13:30 05/04/25 13:20 05/04/25 13:10 05/04/25 13:00 05/04/25 12:50 05/04/25 12:40 05/04/25 12:30 2 05/04/25 12:20 5 05/04/25 12:15 5 05/04/25 08:47 Intake and Output 05/04/25 05/04/25 05/05/25 14:59 22:59 06:59 Intake Total 900 / 1581 681 / 1581 Output Total 75 / 76 1 / 76 Balance 825 / 1505 680 / 1505 Intake: IV 0 / 681 681 / 681 Lactated Ringe r's 1,000 ml @ 15 0 / 0 mls/hr IV .Q24 H GABRIELA Rx#: [id number] Sodium Chlorid e 0.9% 1,000 ml @ 381 / 381 100 mls/hr IV .Q10H GABRIELA Rx#: [id number] Tranexamic Aci d / 0.7% NaCl 1, 300 / 300 000 mg In 100 ml @ 600 mls/hr IV Q6H GABRIELA Rx# :[id number] IV Perioperative 900 / 900 Output: Estimated Blood Loss 5 / 5 Drain Output 70 / 70 Left Knee Hemo vac 70 / 70 # Bowel Movement s Other: # Unmeasured Voi ds 1 Weight 77 kg Weight Measureme nt Method Standing Scale Patient Weight 05/05/25 06:59 Weight 77 kg Musculoskeletal: left knee: NVDI, calf SNT, negative desiree sign. DP palpable, able to wiggle toes/ankle movement without difficulty. NICK dressing clean dry and intact. Results & Data Vital Signs (Past 12 Hours) Vital Signs Temp Pulse Resp BP Pulse Ox O2 Del Method 05/05/25 04:13 36.9 C 74 16 109/61 91 Room Air 05/04/25 23:00 36.8 C 74 16 99/61 L 92 Room Air 05/04/25 19:10 36.5 C 59 L 16 100/52 L 95 Room Air Laboratory Results Impressions Knee X-Ray 05/04/25 12:20 XR knee LT 1 or 2V routine CLINICAL HISTORY: Surgical Post Op COMPARISON: None FINDINGS: Left knee prosthesis shows no hardware complication. Postoperative drain is present. There is expected soft tissue gas. Skin pato are present. IMPRESSION: Unremarkable postoperative exam. ACT 112: Negative or not required by law. Electronically signed by: Anjum Fernandez M.D. 05/04/2025 12:42 PM
[2025-05-05 07:53] VITALS: BP 91/50; PULSE 58; RESP 18; O2SAT 93
[2025-05-05 08:33] LABS: Hematocrit (blood only) 29.7 % (37.0-47.0); Hemoglobin 10.2 g/dl (12.0-16.0); Mean Corpuscular Hemoglobin 30.1 pg (25.0-34.0); Mean Corpuscular Volume 87.6 fL (80.0-100.0); Platelet Count 223 K/uL (130-400); RDW Standard Deviation 39.7 fL (36.4-46.3); Red Blood Count 3.39 M/uL (4.20-5.40); White Blood Count 19.72 K/ul (4.8-10.8)
[2025-05-05] MEDS: KETOROLAC TROMETHAMINE 15 MG/ML VIAL IV PRN (08:48)
[2025-05-05] MEDS: OMEGA-3 (PURIFIED FISH OIL) 1 GM CAP PO SCH (08:48)
[2025-05-05] MEDS: CEROVITE ADV FORMULA TAB PO SCH (08:49)
[2025-05-05] MEDS: ASPIRIN 81 MG ECTAB PO SCH (08:49)
[2025-05-05] MEDS: ESCITALOPRAM OXALATE 10 MG TAB PO SCH (08:49)
[2025-05-05] MEDS: MAGNESIUM OXIDE 400 MG TAB PO SCH (08:49)
[2025-05-05] MEDS: TIMOLOL MALEATE 0.5% OP SOLN 5 ML BTL OP SCH (08:50)
[2025-05-05] MEDS: dexAMETHasone 10 MG in SYRINGE 0 ML IV SCH (08:50)
[2025-05-05] MEDS ORDERED: MULTIVITAMIN TAB PO SCH (09:00)
[2025-05-05 09:11] LABS: Anion Gap 7 (3-11); Blood Urea Nitrogen 28 mg/dl (6-23); Calcium 8.5 mg/dl (8.6-10.3); Carbon Dioxide 22 mmol/L (21-32); Chloride 102 mmol/L (98-107); Creatinine Clr Calc Pharmacy 29.4 ml/min; Glucose 112 mg/dl (70-99(Fasting)); Sodium 131 mmol/L (136-145)
== END 2025-05-05 11:15 ==
LOC: 3W 08:15 → ASU 08:15